=== PATIENT | female | born 1970 ===

== ENCOUNTER 2017-01-20 17:30 | Emergency (ER) | payer MEDICARE ==
[2017-01-20 18:12] VITALS: BP 140/90; PULSE 79; RESP 16; TEMP 99.9; O2SAT 99
[2017-01-20] MEDS ORDERED: Sodium Chloride 0.9% 1,000 ML IV STA (19:25)
--- NOTE | 2017-01-20 19:36 | ED PDOC ---
HPI: General Adult Time Seen by Provider: 01/20/17 17:50 Chief Complaint (Nursing): Flu-like Symptoms Chief Complaint (Provider): Fever History Per: Patient History/Exam Limitations: no limitations Onset/Duration Of Symptoms: Days (x3) Have you had recent travel within the past 21 days to any of the following countries: [place], [place], [place] or [place]?: No Current Symptoms Are (Timing): Still Present Additional Complaint(s): Ria Bauman is a 46 year old female, with a past medical history inclusive of HTN, rheumatoid arthritis and Lupus, who presents to the ED on for the evaluation of a subjective fever x3 days. Associated diffuse myalgias, shortness of breath and some low back pain also reported in addition to a productive cough that she has experienced x1 month. Denies chest pain, vomiting, abdominal pain or urinary complaints. Of note, patient is currently taking a course of PO Cefuroxime that was prescribed to her by her PMD last week, no visible improvement. PMD: Kole Sharp Past Medical History Reviewed: Historical Data, Nursing Documentation, Vital Signs Vital Signs: Last Vital Signs Temp 99.9 F H 01/20/17 18:08 Pulse 79 01/20/17 18:08 Resp 16 01/20/17 18:08 BP 140/90 01/20/17 18:08 Pulse Ox 99 01/21/17 01:04 - Medical History PMH: Arthritis, HTN, Rheumatoid Arthritis Other PMH: Lupus - Surgical History Surgical History: No Surg Hx - Family History Family History: States: Unknown Family Hx - Social History Current smoker - smoking cessation education provided: No Alcohol: None Drugs: Denies - Immunization History Hx Tetanus Toxoid Vaccination: No Hx Influenza Vaccination: No Hx Pneumococcal Vaccination: No - Home Medications Home Medications: Ambulatory Orders Medication Instructions Recorded Dolobid 500 mg PO BID 06/09/14 Methotrexate 10 mg PO DAILY 06/09/14 Phenazopyridine Hydrochlorid2 1 tab PO TID #15 tab 06/09/14 [Pyridium] Plaquenil 200 mg PO BID 06/09/14 Ramipril 5 mg PO DAILY 06/09/14 Sulfamethoxazole/Trimethoprim 1 tab PO BID #14 tab 06/09/14 [Bactrim 400 mg-80 mg] - Allergies Allergies/Adverse Reactions: Allergies Allergy/AdvReac Type Severity Reaction Status Date / Time No Known Allergies Allergy Verified 01/20/17 18:08 Review of Systems ROS Statement: Except As Marked, All Systems Reviewed And Found Negative Constitutional: Positive for: Other (diffuse myalgias) Cardiovascular: Negative for: Chest Pain Respiratory: Positive for: Cough, Shortness of Breath, Sputum Gastrointestinal: Negative for: Vomiting, Abdominal Pain Genitourinary Female: Negative for: Dysuria, Frequency, Hematuria Musculoskeletal: Positive for: Back Pain (low back) Physical Exam - Reviewed Nursing Documentation Reviewed: Yes Vital Signs Reviewed: Yes - Physical Exam Appears: Positive for: Non-toxic, No Acute Distress Head Exam: Positive for: ATRAUMATIC, NORMOCEPHALIC Skin: Positive for: Normal Color, Warm, Dry Eye Exam: Positive for: Normal appearance, PERRL ENT: Positive for: Normal ENT Inspection. Negative for: Pharyngeal Erythema, Tonsillar Exudate, Tonsillar Swelling Cardiovascular/Chest: Positive for: Regular Rate, Rhythm. Negative for: Murmur Respiratory: Positive for: Normal Breath Sounds. Negative for: Rales, Rhonchi, Wheezing, Respiratory Distress Gastrointestinal/Abdominal: Positive for: Normal Exam, Soft. Negative for: Tenderness Back: Positive for: Normal Inspection Extremity: Positive for: Normal ROM Neurologic/Psych: Positive for: Alert, Oriented - Laboratory Results Result Diagrams: 01/20/17 19:30 01/20/17 19:30 - ECG O2 Sat by Pulse Oximetry: 99 (RA) Pulse Ox Interpretation: Normal - Radiology X-Ray: Viewed By Me, Read By Radiologist X-Ray Interpretation: No Acute Disease Medical Decision Making Medical Decision Makin:13 Initial Impression: fever, cough, myalgias; will r/o pneumonia, influenza, pulmonary embolism Initial Plan: * CXR * Labs * D-Dimer * Beta HCG * Influenza A B * Urinalysis * Urine C&S * IV NS 1000ml at 150mls/hr * Toradol 30mg IV * Reevaluation 21:46 CXR report reviewed by Kandace: IMPRESSION: 1. No acute cardiopulmonary disease. 2. Incidental/non-acute findings are described above. 2334: D-dimer elevated. CT angio chest ordered to r/o PE. 0014: CT angio chest impression: 1. No CT evidence of pulmonary embolism. 2. Splenic lesion, indeterminate. Suggest nonemergent ultrasound or MRI. 3. Incidental/non-acute findings are described above. 0029: Patient feels better and is stable for d/c. Advised to return to ED with any worsening or concerning symptoms. Gave patient copy of CT report for f/u w/ PCP. explained need for outpt follow up fro splenic lesion. Scribe Attestation: Documented by Lilli Griggs, acting as a scribe for Breyl Cisse MD. Provider Scribe Attestation: All medical record entries made by the Scribe were at my direction and personally dictated by me. I have reviewed the chart and agree that the record accurately reflects my personal performance of the history, physical exam, medical decision making, and the department course for this patient. I have also personally directed, reviewed, and agree with the discharge instructions and disposition. Disposition - Clinical Impression Clinical Impression: Fever, Viral illness - Patient ED Disposition Is Patient to be Admitted: No Counseled Patient/Family Regarding: Studies Performed, Diagnosis, Need For Followup - Disposition Referrals: [facility] [Outside] [facility] [Outside] Disposition: Routine/Home Disposition Time: 23:29 Condition: GOOD Additional Instructions: follow up with your primary doctor in 1-2 days. return to the ED with any worsening or concerning symptoms or if not better in 3 days. r Instructions: Viral Syndrome (ED)
[2017-01-20 19:53] LABS: BASO # 0.1 K/uL (0.0-0.2); BASO % 0.8 % (0.0-2.0); EOS % 0.5 % (0.0-4.0); HEMATOCRIT 40.8 % (34.0-47.0); LYMPH # 0.6 K/uL (1.0-4.3); LYMPH % 7.2 % (20.0-40.0); MEAN CORPUSCULAR HEMOGLOBIN 31.4 pg (27.0-31.0); MEAN CORPUSCULAR HGB CONC 32.7 g/dL (33.0-37.0); MEAN PLATELET VOLUME 9.3 fl (7.2-11.7); MONO # 0.4 K/uL (0.0-0.8); MONO % 4.7 % (0.0-10.0); NEUT # 7.7 K/uL (1.8-7.0); NEUT % 86.8 % (50.0-75.0); PLATELET COUNT 182 K/uL (130-400); RED CELL DISTRIBUTION WIDTH 16.2 % (11.5-14.5); WHITE BLOOD COUNT 8.8 K/uL (4.8-10.8)
[2017-01-20 20:01] LABS: RBC URINE 2 /hpf (0-3); URINE BILIRUBIN NEGATIVE (NEGATIVE); URINE BLOOD NEGATIVE (NEGATIVE); URINE COLOR YELLOW (YELLOW); URINE GLUCOSE (UA) NEG (Normal); URINE KETONE NEGATIVE (NEGATIVE); URINE LEUKOCYTE ESTERASE NEG Leu/uL (Negative); URINE PROTEIN NEGATIVE (NEGATIVE); URINE UROBILINOGEN 0.2-1.0 mg/dL (0.2-1.0); WBC URINE 1 /hpf (0-5)
[2017-01-20 20:04] LABS: ALKALINE PHOSPHATASE 90 U/L (38-126); ALT/SGPT 30 U/L (9-52); AST/SGOT 25 U/L (14-36); BILIRUBIN,TOTAL 0.7 mg/dl (0.2-1.3); BLOOD UREA NITROGEN 17 mg/dl (7-17); CALCIUM 8.8 mg/dL (8.4-10.2); CARBON DIOXIDE 23 mmol/L (22-30); CHLORIDE 106 mmol/L (98-107); GFR AFRICAN-AMERICAN > 60; GLUCOSE,RANDOM 115 mg/dL (65-105); POTASSIUM 3.8 MMOL/L (3.6-5.0); SODIUM 143 mmol/l (132-148); TOTAL PROTEIN 7.3 G/DL (6.3-8.2)
[2017-01-20 20:20] LABS: NEUTROPHIL 85 % (42-75); TOTAL CELLS COUNTED 100
[2017-01-20 20:22] LABS: METAMYELOCYTE 1 % (0-0)
--- NOTE | 2017-01-20 21:47 | RAD ---
EXAM: XR Chest, 2 Views. CLINICAL HISTORY: 46 years old, female; Signs and symptoms; Cough and shortness of breath and other: Body aches; Symptoms not specified; Additional info: Short of breath, chest pain TECHNIQUE: Frontal and lateral views of the chest. COMPARISON: No relevant prior studies available. FINDINGS: Lungs: No consolidation. Pleural space: No pleural effusion. No pneumothorax. Heart: No cardiomegaly. Mediastinum: Unremarkable. Bones/joints: No acute fracture. IMPRESSION: 1. No acute cardiopulmonary disease. 2. Incidental/non-acute findings are described above.
[2017-01-20] MEDS ORDERED: Iodixanol 320 MG/ML 100 ML BOTTLE IV ONE (23:35)
[2017-01-20] MEDS ORDERED: Sodium Chloride 0.9% 50 ML IV ONE (23:35)
--- NOTE | 2017-01-21 00:14 | CT ---
EXAM: CT Angiography Chest With Intravenous Contrast. CLINICAL HISTORY: 46 years old, female; Signs and symptoms; Other: Elevated d-dimer; Additional info: Rule out pe TECHNIQUE: Axial computed tomographic angiography images of the chest with intravenous contrast using pulmonary embolism protocol. This CT exam was performed using one or more of the following dose reduction techniques: automated exposure control, adjustment of the mA and/or kV according to patient size, and/or use of iterative reconstruction technique. MIP reconstructed images were created and reviewed. Coronal and sagittal reformatted images were created and reviewed. CONTRAST: 90 mL of administered intravenously. COMPARISON: No relevant prior studies available. FINDINGS: Pulmonary arteries: No pulmonary embolism. Aorta: No aneurysm. No dissection. Lungs: No consolidation. Pleural space: No significant effusion. No pneumothorax. Heart: Mild cardiomegaly. No significant pericardial effusion. Bones/joints: No acute fracture. No dislocation. Soft tissues: Unremarkable. Lymph nodes: No pathologically enlarged lymph nodes. Spleen: 1.7 x 1.6 x 1.8 cm hypodense lesion, incompletely characterized. IMPRESSION: 1. No CT evidence of pulmonary embolism. 2. Splenic lesion, indeterminate. Suggest nonemergent ultrasound or MRI. 3. Incidental/non-acute findings are described above.
== END 2017-01-21 01:07 | disposition home or self-care (01) ==
LOC: H.ER 17:30
DX: R50.9 Fever, unspecified (principal); B34.9 Viral infection, unspecified; I10 Essential (primary) hypertension
CPT/HCPCS: 71020; 71275; 80053; 81003; 81025; 84702; 85025; 85378; 87086; 87804; 99283; J1885; J2405; J7040; Q9967

== ENCOUNTER 2018-01-28 11:45 | Inpatient (IN) | payer MEDICARE ==
--- NOTE | 2018-01-28 12:55 | ED PDOC ---
Past Medical History Vital Signs: Last Vital Signs Temp 103.0 F H 01/28/18 11:48 Pulse 143 H 01/28/18 11:48 Resp 16 01/28/18 11:48 BP 106/77 01/28/18 11:48 Pulse Ox 97 01/28/18 12:55 - Medical History PMH: Arthritis, HTN, Rheumatoid Arthritis - Family History Family History: States: Unknown Family Hx - Immunization History Hx Tetanus Toxoid Vaccination: No Hx Influenza Vaccination: No Hx Pneumococcal Vaccination: No - Home Medications Home Medications: Ambulatory Orders Medication Instructions Recorded Dolobid 500 mg PO BID 06/09/14 Methotrexate 10 mg PO DAILY 06/09/14 Phenazopyridine Hydrochlorid2 1 tab PO TID #15 tab 06/09/14 [Pyridium] Plaquenil 200 mg PO BID 06/09/14 Ramipril 5 mg PO DAILY 06/09/14 Sulfamethoxazole/Trimethoprim 1 tab PO BID #14 tab 06/09/14 [Bactrim 400 mg-80 mg] - Allergies Allergies/Adverse Reactions: Allergies Allergy/AdvReac Type Severity Reaction Status Date / Time No Known Allergies Allergy Verified 01/20/17 18:08 - ECG O2 Sat by Pulse Oximetry: 97 Disposition - Disposition Forms: [employer] (Serbian)
[2018-01-28] MEDS ORDERED: Sodium Chloride 0.9% 1,000 ML IV SCH ×2 (13:00→22:30)
[2018-01-28] MEDS ORDERED: Piperacillin/Tazobact 3.375 GM in Sodium Chloride 0.9% 100 ML IVPB STA (13:04)
--- NOTE | 2018-01-28 13:10 | ED PDOC ---
HPI:Nausea, Vomiting, Diarrhea History Per: Patient, Family, Tray Drier (O' Doughty'sSAMANTHA ERAZO [id number]) Additional Complaint(s): 47 y/o female, hx of RA/SLE/HTN presented with at bedside for evaluation of fever/nausea/vomiting/diarrhea and altered mental status. at bedside reports symptom onset was approx Thursday during the day. Vomiting has been frequent, but no quantifed amount. Emesis has been NBNB. Pt has not been tolerating PO intake at all as per . There have also been multiple episodes of diarrhea that has been NB. Pt was on course of Cefuroxmine at the end of the December. reports pt also started acting differently yesterday, reports she normally converses and responds but has been having blank stares and has been very "figgity". Fever was not recorded but as per she has been feeling very hot. When questioning pt, she reports she also has discomfort with urination, which she says is burining in nature. Also reports back pain but chronicity is unknown. No cough, SOB, difficulty breathing. PMD: Fogari (rheum) <Bolivar Mahoney - Last Filed: 01/28/18 14:51> <Joanne Vega - Last Filed: 01/29/18 23:07> Time Seen by Provider: 01/28/18 12:13 Chief Complaint (Nursing): Fever Supervising Attending Note - Supervising Attending Note The Documented history was done by the: Physician Wood Fence Erector, Attending Physician The documented physical exam was done by the: Physician Wood Fence Erector, Attending Physician The documented procedures were done by the: Physician Wood Fence Erector, Attending Physician EM CAVEAT: Acuity of Condition - Attestation: I have personally seen and examined this patient.: Yes I have fully participated in the care of the patient.: Yes I have reviewed all pertinent clinical information, including history, physical exam and plan: Yes <Joanne Vega - Last Filed: 01/29/18 23:07> Past Medical History Reviewed: Historical Data, Nursing Documentation, Vital Signs Vital Signs: Last Vital Signs Temp 103.0 F H 01/28/18 11:48 Pulse 143 H 01/28/18 11:48 Resp 16 01/28/18 11:48 BP 106/77 01/28/18 11:48 Pulse Ox 97 01/28/18 13:09 - Medical History PMH: Arthritis, HTN, Rheumatoid Arthritis - Family History Family History: States: Unknown Family Hx - Immunization History Hx Tetanus Toxoid Vaccination: No Hx Influenza Vaccination: No Hx Pneumococcal Vaccination: No <Bolivar Mahoney - Last Filed: 01/28/18 14:51> Reviewed: Historical Data Vital Signs: Last Vital Signs Temp 103.3 F H 01/28/18 13:40 Pulse 128 H 01/28/18 13:40 Resp 18 01/28/18 13:40 BP 106/77 01/28/18 11:48 Pulse Ox 98 01/28/18 13:40 - Surgical History Surgical History: No Surg Hx <Joanne Vega - Last Filed: 01/29/18 23:07> - Home Medications Home Medications: Ambulatory Orders Medication Instructions Recorded Baclofen [Lioresal] 10 mg PO Q12 PRN 01/28/18 Cholecalciferol (Vitamin D3) 5,000 unit PO DAILY 01/28/18 [Vitamin D3] Diflunisal 500 mg PO Q12 01/28/18 Enalapril Maleate [Vasotec] 10 mg PO DAILY 01/28/18 Folic Acid [Folic Acid] 1 mg PO DAILY 01/28/18 Hydroxychloroquine Sulfate 200 mg PO Q12 01/28/18 [Plaquenil] Methotrexate 12.5 mg PO QWK 01/28/18 predniSONE [predniSONE Tab] 5 mg PO DAILY 01/28/18 - Allergies Allergies/Adverse Reactions: Allergies Allergy/AdvReac Type Severity Reaction Status Date / Time No Known Allergies Allergy Verified 01/20/17 18:08 Review of Systems Constitutional: Positive for: Fever, Chills, Weakness. Negative for: Sweats Eyes: Negative for: Vision Change ENT: Negative for: Nose Discharge, Nose Congestion, Throat Pain, Throat Swelling Cardiovascular: Negative for: Chest Pain, Palpitations, Orthopnea, Light Headedness Respiratory: Negative for: Cough, Shortness of Breath, Hemoptysis, SOB with Exertion, Pleuritic Pain, Sputum, Wheezing Gastrointestinal: Positive for: Nausea, Vomiting, Abdominal Pain, Diarrhea. Negative for: Constipation, Melena, Hematochezia, Hematemesis Genitourinary Female: Positive for: Dysuria, Frequency. Negative for: Incontinence, Hematuria, Vaginal Discharge, Vaginal Bleeding, Pelvic Pain, Rash Skin: Negative for: Rash, Jaundice, Bruising Neurological: Positive for: Altered Mental Status. Negative for: Weakness, Numbness, Incoordination, Change in Speech, Confusion, Seizures, Headache, Dizziness <Bolivar Mahoney - Last Filed: 01/28/18 14:51> ROS Statement: Except As Marked, All Systems Reviewed And Found Negative <Joanne Vega - Last Filed: 01/29/18 23:07> Physical Exam - Reviewed Nursing Documentation Reviewed: Yes Vital Signs Reviewed: Yes - Physical Exam Appears: Positive for: Non-toxic, No Acute Distress, Uncomfortable Head Exam: Positive for: ATRAUMATIC, NORMAL INSPECTION, NORMOCEPHALIC Skin: Positive for: Warm, Dry, Pallor. Negative for: Rash, Mottled, Cyanosis Eye Exam: Positive for: EOMI, PERRL, Conjunctival injection ENT: Positive for: Normal ENT Inspection Neck: Positive for: Painless ROM, Supple. Negative for: Decreased ROM Cardiovascular/Chest: Positive for: Regular Rate, Rhythm, Tachycardia. Negative for: JVD, Murmur, Friction Rub, Irregularly Irregular Respiratory: Positive for: Normal Breath Sounds. Negative for: Decreased Breath Sounds, Accessory Muscle Use, Crackles, Rales, Rhonchi, Wheezing, Respiratory Distress Pulses-Radial (L): 2+ Pulses-Radial (R): 2+ Gastrointestinal/Abdominal: Positive for: Bowel Sounds (normal), Soft, Tenderness (discomfort upon palpation ). Negative for: Organomegaly, Mass, Distended, Guarding, Rebound Back: Positive for: L CVA Tenderness, R CVA Tenderness. Negative for: Decreased ROM, Muscle Spasm Extremity: Positive for: Normal ROM, Capillary Refill (<2s). Negative for: Tenderness, Pedal Edema DTR - Knee (R): 2+ DTR - Knee (L): 2+ Lymphatic: Negative for: Adenopathy Neurologic/Psych: Positive for: procurement intern II-XII, Oriented (to name only ), Gait ( unsteady), Other (does not know place/date/event). Negative for: Alert, Motor/ Sensory Deficits, Aphasia <Bolivar Mahoney - Last Filed: 01/28/18 14:51> - Reviewed Nursing Documentation Reviewed: Yes <Joanne Vega - Last Filed: 01/29/18 23:07> - Laboratory Results Result Diagrams: 01/28/18 13:05 01/28/18 13:05 - ECG O2 Sat by Pulse Oximetry: 97 - Progress ED Course And Treament: UTI/Sepsis/gastroenteritis/influenza sepsis work up flu a/b c diff (recent abx usage) IV fluids CXR EKG Udip/culture IV Zosyn (large LE/nitrates on dip) re-evaluate <Bolivar Mahoney - Last Filed: 01/28/18 14:51> - Laboratory Results Result Diagrams: 01/29/18 09:30 01/29/18 09:30 <Joanne Vega - Last Filed: 01/29/18 23:07> Disposition - Patient ED Disposition Is Patient to be Admitted: Yes - Disposition Disposition Time: 14:51 - Pt Status Changed To: Hospital Disposition Of: Inpatient - Admit Certification Admit to Inpatient:: After my assessment, the patient will require hospitalization for at least two midnights. This is because of the severity of symptoms shown, intensity of services needed, and/or the medical risk in this patient being treated as an outpatient. <Bolivar Mahoney - Last Filed: 01/28/18 14:51> Discussed With : Elia Calivn Doctor Will See Patient In The: Hospital Counseled Patient/Family Regarding: Studies Performed, Diagnosis - POA Present On Arrival: None <Joanne Vega - Last Filed: 01/29/18 23:07> - Clinical Impression Clinical Impression: UTI (lower urinary tract infection), Sepsis, Gastroenteritis - Disposition Condition: FAIR
[2018-01-28] MEDS ORDERED: Piperacillin/Tazobact 3.375 gm Inj IVPB ONE (13:31)
[2018-01-28 13:34] LABS: VENOUS BLOOD GAS BASE EXCESS -0.4 mmol/L (0.0-2.0); VENOUS BLOOD GAS PCO2 33 mmHg (40-60); VENOUS BLOOD GAS PO2 26 mm/Hg (30-55); VENOUS BLOOD PH 7.45 (7.32-7.43)
[2018-01-28 13:36] LABS: BASO # 0.1 K/uL (0.0-0.2); BASO % 0.7 % (0.0-2.0); HEMOGLOBIN 14.5 g/dL (12.0-16.0); LYMPH # 2.2 K/uL (1.0-4.3); LYMPH % 17.6 % (20.0-40.0); MEAN CELL VOLUME 90.7 fl (81.0-99.0); MEAN CORPUSCULAR HEMOGLOBIN 30.5 pg (27.0-31.0); MEAN CORPUSCULAR HGB CONC 33.7 g/dL (33.0-37.0); MEAN PLATELET VOLUME 8.8 fl (7.2-11.7); MONO # 0.9 K/uL (0.0-0.8); MONO % 7.1 % (0.0-10.0); NEUT # 9.4 K/uL (1.8-7.0); NEUT % 74.6 % (50.0-75.0); RBC 4.74 Mil/uL (3.80-5.20); RED CELL DISTRIBUTION WIDTH 14.9 % (11.5-14.5); WHITE BLOOD COUNT 12.6 K/uL (4.8-10.8)
[2018-01-28 13:48] LABS: ALB/GLOB RATIO 0.9 (1.0-2.1); ALBUMIN 4.1 g/dL (3.5-5.0); CALCIUM 9.4 mg/dL (8.4-10.2)
[2018-01-28 13:52] LABS: INR 1.3 (0.9-1.2); PARTIAL THROMBOPLASTIN TIME 38.1 Seconds (25.6-37.1); PROTHROMBIN TIME 13.9 Seconds (9.8-13.1)
[2018-01-28 14:00] LABS: TROPONIN I 0.022 ng/mL (0.00-0.120)
[2018-01-28] MEDS ORDERED: Magnesium Sulfate 1 GM in Dextrose 5% In Water 100 ML IVPB ONE (14:16)
[2018-01-28] MEDS ORDERED: Potassium Chloride 20 mEq 100 ML IVPB ONE (14:17)
--- NOTE | 2018-01-28 14:31 | RAD ---
HISTORY: Fever. COMPARISON: Comparison chest dated 01/20/2018. TECHNIQUE: Chest PA and lateral FINDINGS: LUNGS: Mild bibasilar atelectasis. PLEURA: No significant pleural effusion identified. No pneumothorax apparent. CARDIOVASCULAR: Heart size is upper limits of normal/ borderline enlarged. OSSEOUS STRUCTURES: No significant abnormalities. VISUALIZED UPPER ABDOMEN: Normal. OTHER FINDINGS: None. IMPRESSION: Mild bibasilar atelectasis.
--- NOTE | 2018-01-28 15:39 | CT ---
PROCEDURE: CT HEAD WITHOUT CONTRAST. HISTORY: AMS COMPARISON: 12/13/2011. TECHNIQUE: Axial computed tomography images were obtained through the head/brain without intravenous contrast. Coronal and sagittal reconstructed images. Radiation dose: Total exam DLP = 767.44 mGy-cm. This CT exam was performed using one or more of the following dose reduction techniques: Automated exposure control, adjustment of the mA and/or kV according to patient size, and/or use of iterative reconstruction technique. FINDINGS: HEMORRHAGE: No intracranial hemorrhage. BRAIN: No mass effect or edema. No atrophy or chronic microvascular ischemic changes. VENTRICLES: Unremarkable. No hydrocephalus. CALVARIUM: Unremarkable. PARANASAL SINUSES: Unremarkable as visualized. No significant inflammatory changes. MASTOID AIR CELLS: Unremarkable as visualized. No inflammatory changes. OTHER FINDINGS: None. IMPRESSION: No acute intracranial abnormalities. No significant findings to account for the clinical presentation. No significant interval change compared to the prior examination(s).
[2018-01-28] MEDS ORDERED: Magnesium Sulfate 2 gm/50 ml 0 GM/0 ML BAG ONE (15:57)
[2018-01-28] MEDS ORDERED: Potassium Chloride 20 mEq ER Tab PO ONE ×2 (16:00→16:03)
[2018-01-28 17:36] LABS: VENOUS BLOOD GAS BASE EXCESS -6.3 mmol/L (0.0-2.0); VENOUS BLOOD GAS PCO2 32 mmHg (40-60); VENOUS BLOOD GAS PO2 41 mm/Hg (30-55); VENOUS BLOOD PH 7.36 (7.32-7.43)
[2018-01-28] MEDS ORDERED: Sodium Chloride 0.45% 1,000 ML IV SCH (20:00)
[2018-01-28] MEDS: DIFLUNISAL 500 MG PO SCH (22:40)
[2018-01-28] MEDS: Dextrose 5%/0.9% NS 1,000 ML IV SCH (23:45)
[2018-01-29] MEDS: Piperacillin/Tazobact 3.375 GM in Sodium Chloride 0.9% 100 ML IVPB SCH ×3 (00:02→20:19)
[2018-01-29] MEDS ORDERED: Trimethobenzamide 200 mg/2 mL Inj IM ONE (06:29)
[2018-01-29] MEDS: metroNIDAZOLE 500mg/100ml NS 100 ML IVPB SCH ×2 (09:42→20:19)
[2018-01-29] MEDS: Enoxaparin 40 mg Syringe SC SCH (09:46)
[2018-01-29] MEDS: DIFLUNISAL 500 MG PO SCH ×2 (10:06→22:00)
[2018-01-29] MEDS: Cholecalciferol 1,000 INTLU TAB PO SCH (10:08)
[2018-01-29] MEDS: Dextrose 5%/0.9% NS 1,000 ML IV SCH ×2 (10:09→22:03)
[2018-01-29 10:11] LABS: BASO % 0.1 % (0.0-2.0); HEMOGLOBIN 12.1 g/dL (12.0-16.0); LYMPH # 0.6 K/uL (1.0-4.3); LYMPH % 4.6 % (20.0-40.0); MEAN CELL VOLUME 90.8 fl (81.0-99.0); MEAN CORPUSCULAR HEMOGLOBIN 30.5 pg (27.0-31.0); MEAN CORPUSCULAR HGB CONC 33.6 g/dL (33.0-37.0); MEAN PLATELET VOLUME 9.1 fl (7.2-11.7); MONO # 0.5 K/uL (0.0-0.8); MONO % 3.9 % (0.0-10.0); NEUT # 12.8 K/uL (1.8-7.0); NEUT % 91.4 % (50.0-75.0); PLATELET COUNT 144 K/uL (130-400); RBC 3.95 Mil/uL (3.80-5.20); RED CELL DISTRIBUTION WIDTH 15.5 % (11.5-14.5)
[2018-01-29 10:25] LABS: ALB/GLOB RATIO 0.8 (1.0-2.1); ALBUMIN 3.1 g/dL (3.5-5.0); ALT/SGPT 30 U/L (9-52); AST/SGOT 25 U/L (14-36); BLOOD UREA NITROGEN 14 mg/dl (7-17); CALCIUM 8.2 mg/dL (8.4-10.2); GFR AFRICAN-AMERICAN > 60; GFR NON-AFRICAN AMERICAN 60
[2018-01-29] MEDS ORDERED: Iohexol 240 (50 ml) PO ONE (10:50)
[2018-01-29 11:20] LABS: ANISOCYTOSIS SLIGHT; LYMPHOCYTE 7 % (20-50); MONOCYTE 8 % (0-10); NEUTROPHIL 85 % (42-75); OVALOCYTES SLIGHT; PLATELET ESTIMATE SLIGHTLY DECREASED (NORMAL); TEARDROP CELLS SLIGHT; TOTAL CELLS COUNTED 100
[2018-01-29 11:21] LABS: LARGE PLATELETS PRESENT
[2018-01-29] MEDS: Potassium Chloride 20 mEq 100 ML IVPB SCH ×2 (12:28→15:13)
[2018-01-29] MEDS ORDERED: Iohexol 300 100 ML IJ ONE (13:46)
--- NOTE | 2018-01-29 14:49 | CT ---
PROCEDURE: CT Abdomen and Pelvis with contrast HISTORY: Nausea, abdominal pain, vomiting and diarrhea COMPARISON: None. TECHNIQUE: CT scan of the abdomen and pelvis was performed after administration of intravenous contrast. Oral contrast was not administered. Coronal and sagittal reformatted images were obtained. Contrast dose: 95 mL Omnipaque 300 Radiation dose: Total exam DLP = 466.46 mGy-cm. This CT exam was performed using one or more of the following dose reduction techniques: Automated exposure control, adjustment of the mA and/or kV according to patient size, and/or use of iterative reconstruction technique. FINDINGS: LOWER THORAX: The lung bases are clear. There is linear atelectasis/scarring in the lingula P LIVER: There is mild hepatomegaly and diffuse fatty infiltration in the liver. No gross lesion or ductal dilatation. GALLBLADDER AND BILE DUCTS: There are no calcified gallstones. PANCREAS: Normal in size with homogeneous enhancement. No gross lesion or ductal dilatation. SPLEEN: The spleen is normal in size. There is a 2.0 cm lobular fluid density lesion in the lower pole of the spleen. ADRENALS: Normal in size without discrete nodule. KIDNEYS AND URETERS: Normal in size with homogeneous enhancement. No hydronephrosis. No solid mass. VASCULATURE: No aortic aneurysm. BOWEL: There are fluid filled normal caliber small bowel loops. There is also fluid in normal caliber colon. No bowel dilatation or obstruction. APPENDIX: Normal appendix. PERITONEUM: No free fluid. No free air. LYMPH NODES: No enlarged lymph nodes. BLADDER: The urinary bladder is partially decompressed and there is apparent moderate mural thickening of the bladder wall with minimal perivesical fat stranding. REPRODUCTIVE: The uterus is normal in size. BONES: No acute fracture. Diffuse bone demineralization. OTHER FINDINGS: None. IMPRESSION: 1. Fluid-filled normal caliber small bowel loops and colon without evidence for bowel dilatation or obstruction. Findings are most compatible with nonspecific infectious/inflammatory enteritis and colitis. 2. 2.0 cm simple cyst in the lower pole of the spleen.
--- NOTE | 2018-01-29 16:08 | CP.PCM.CON ---
History of Present Illness - History of Present Illness History of Present Illness: Consult requested by Dr Calvin- This is a 47 year old female, with history of of RA/SLE/HTN presented with at bedside for evaluation of fever asscoiated with nausea and vomiting/diarrhea. As per patient no sick contacts and no travel history. Vomiting was non bloody. Pt has not been tolerating PO intake at all as per . There have also been multiple episodes of non bloody diarrhea several times per day. Patient was on course of Cefuroxmine at the end of the December. Fever was not recorded but as per she has been feeling very hot. When questioning pt, she reports she also has discomfort with urination, which she says is burning in nature. Also reports back pain but chronicity is unknown. No cough, SOB, difficulty breathing. Denies any GI pathology in the past Review of Systems - Review of Systems Review of Systems: 12 point ROS unremarkable except that documented in HPI Past Patient History - Infectious Disease Hx of Infectious Diseases: None - Past Medical History & Family History Past Medical History?: Yes - Past Social History Smoking Status: Never Smoked - CARDIAC Hx Cardiac Disorders: No Hx Angina: No Hx Atrial Fibrillation: No Hx Cardia Arrhythmia: No Hx Circulatory Problems: No Hx Congestive Heart Failure: No Hx Heart Attack: No Hx Heart Murmur: No Hx Heart Transplant: No Hx Hypercholesterolemia: No Hx Hypertension: Yes Hx Hypotension: No Hx Internal Defibrillator: No Hx Mitral Valve Prolapse: No Hx Pacemaker: No Hx Peripheral Edema: No Hx Peripheral Vascular Disease: No - PULMONARY Hx Respiratory Disorders: No Hx Asthma: No Hx Bronchitis: No Hx Chronic Obstructive Pulmonary Disease (COPD): No Hx Emphysema: No Hx Lung Cancer: No Hx Pneumonia: No Hx Pulmonary Edema: No Hx Pulmonary Embolism: No Hx Respiratory Aspiration: No Hx Respiratory Tract Infection: No Hx Sleep Apnea: No Hx Tuberculosis: No - NEUROLOGICAL Hx Neurological Disorder: No Hx Alzheimer's Disease: No HX Cerebrovascular Accident: No Hx Dementia: No Hx Dizziness: No Hx Meningitis: No Hx Migraine: No Hx Multiple Sclerosis: No Hx Paralysis: No Hx Parkinson's Disease: No Hx Seizures: No Hx Syncope: No Hx Transient Ischemic Attacks (TIA): No Hx Vertigo: No Other/Comment: occasional headache - HEENT Hx HEENT Problems: No Hx Blind: No Hx Cataracts: No Hx Deafness: No Hx Difficulty Chewing: No Hx Epistaxis: No Hx Glaucoma: No Hx Macular Degeneration: No Hx Sinusitis: No - RENAL Hx Chronic Kidney Disease: No Hx Dialysis: No Hx Kidney Stones: No Hx Neurogenic Bladder: No Hx Pyelonephritis: No Hx Renal (Kidney) Cancer: No Hx Renal Failure: No - ENDOCRINE/METABOLIC Hx Endocrine Disorders: Yes Hx Adrenal Cancer: No Hx Diabetes Insipidus: No Hx Diabetes Mellitus Type 1: No Hx Diabetes Mellitus Type 2: No Hx Hyperthyroidism: No Hx Hypothyroidism: No Hx Systemic Lupus Erythematosus: Yes - HEMATOLOGICAL/ONCOLOGICAL Hx Blood Disorders: No Hx AIDS: No Hx Anemia: No Hx Blood Transfusions: No Hx Blood Transfusion Reaction: No Hx Bruising: No Hx Cancer: No Hx Chemotherapy: No Hx Cirrhosis: No Hx Gum Bleeding: No Hx Hemophilia: No Hx Hepatitis A: No Hx Hepatitis B: No Hx Hepatitis C: No Hx Human Immunodeficiency Virus (HIV): No Hx Leukemia: No Hx Metastesis: No Hx Shingles: No Hx Sickle Cell Disease: No Hx Unexplained Bleeding: No Hx von Willebrand's Disease: No - INTEGUMENTARY Hx Dermatological Problems: No Hx Basil Cell: No Hx Rodriguez: No Hx Cellulitis: No Hx Eczema: No Hx Melanoma: No Hx Psoriasis: No Hx Squamous Cell: No - MUSCULOSKELETAL/RHEUMATOLOGICAL Hx Musculoskeletal Disorders: No Hx Arthritis: Yes Hx Back Pain: Yes Hx Degenerative Joint Disease: No Hx Falls: No Hx Fractures: No Hx Gout: No Hx Herniated Disk: No Hx Myasthenia Gravis: No Hx Osteoarthritis: No Hx Osteomyelitis: No Hx Osteoporosis: No Hx Rhabdomyolysis: No Hx Rheumatoid Arthritis: Yes Hx Spinal Stenosis: No Hx Unsteady Gait: No - GASTROINTESTINAL Hx Gastrointestinal Disorders: No Hx Bowel Surgery: No Hx Clostridium Difficile: No Hx Colitis: No Hx Colostomy: No Hx Constipation: No Hx Crohn's Disease: No Hx Diarrhea: No Hx Diverticulitis: No Hx Esophageal Varices: No Hx Fatty Liver Disease: No Hx Gall Bladder Disease: No Hx Gastritis: No Hx Gastroesophageal Reflux: No Hx Hemorrhoids: No Hx Ileostomy: No Hx Irritable Bowel: No Hx Liver Failure: No Hx Nausea: Yes Hx Pancreatitis: No HX Swallowing Problems: No Hx Ulcer: No Hx Vomiting: Yes - GENITOURINARY/GYNECOLOGICAL Hx Genitourinary Disorders: No Hx Bladder Cancer: No Hx Bladder Stone: No Hx Cervical Cancer: No Hx Hematuria: No Hx Incontinence: No Hx Ovarian Cancer: No Hx Postmenopausal Bleeding: No Hx Reproductive Disorders: No Hx Sexually Transmitted Disorders: No Hx Uterine Cancer: No Hx Urinary Tract Infection: No - PSYCHIATRIC Hx Psychophysiologic Disorder: No Hx Anxiety: No Hx Bipolar Disorder: No Hx Depression: No Hx Emotional Abuse: No Hx Hallucinations: No Hx Panic Symptoms: No Hx Paranoia: No Hx Post Traumatic Stress Disorder: No Hx Psychosis: No Hx Physical Abuse: No Hx Schizophrenia: No Hx Sexual Abuse: No Hx Substance Use: No - SURGICAL HISTORY Hx Surgeries: No Hx Abdominal Aortic Aneurysm Repair: No Hx Amputation: No Hx Angiogram: No Hx Angioplasty: No Hx Appendectomy: No Hx Arteriovenous Shunt: No Hx Arthroscopy: No Hx Bile Duct Stent: No Hx Breast Biopsy: No Hx Cataract Extraction: No Hx Cardiac Catheterization: No Hx Carotid Endarterectomy: No Hx Section: No (unknown by , only with her 4 years) Hx Cholecystectomy: No Hx Coronary Artery Bypass Graft: No Hx Coronary Stent: No Hx Dilation and Curettage: No Hx Eye Surgery: No Hx Femoral-Popliteal Bypass Graft: No Hx Gastric Bypass Surgery: No Hx Herniorrhaphy: No Hx Hysterectomy: No Hx Joint Replacement: No Hx Kidney Transplant: No Hx Liver Transplant: No Hx Mastectomy: No Hx Musculoskeletal Surgery: No Hx Open Heart Surgery: No Hx Open Reduction Internal Fixation: No Hx Orthopedic Surgery: No Hx Parathyroidectomy: No Hx Penile Implant: No Hx Pulmonary Surgery: No Hx Splenectomy: No Hx Thyroidectomy: No Hx Tonsillectomy: No Hx Tubal Ligation: No Hx Valve Replacement: No Hx Vascular Surgery: No Hx Vascular Access Device: No - ANESTHESIA Hx Anesthesia: No Hx Anesthesia Reactions: No Hx Malignant Hyperthermia: No Has any member of the family had a problem w/ anesthesia?: No Meds Allergies/Adverse Reactions: Allergies Allergy/AdvReac Type Severity Reaction Status Date / Time No Known Allergies Allergy Verified 01/20/17 18:08 - Medications Medications: Current Medications Acetaminophen (Tylenol 325mg Tab) 650 mg PO Q4 PRN PRN Reason: feve 101 and above Baclofen (Lioresal) 10 mg PO Q12 PRN PRN Reason: Muscle spasm Cholecalciferol (Vitamin D) 5,000 intlu PO DAILY [facility] Last Admin: 01/29/18 10:08 Dose: 5,000 intlu Enalapril Maleate (Vasotec) 10 mg PO DAILY [facility] Last Admin: 01/29/18 10:08 Dose: Not Given Enoxaparin Sodium (Lovenox) 40 mg SC DAILY [facility] PRN Reason: Protocol Last Admin: 01/29/18 09:46 Dose: 40 mg Folic Acid (Folic Acid) 1 mg PO DAILY [facility] Last Admin: 01/29/18 10:06 Dose: 1 mg Home Med (Diflunisal) 500 mg PO Q12 [facility] Last Admin: 01/29/18 10:06 Dose: 500 mg Hydroxychloroquine Sulfate (Plaquenil) 200 mg PO Q12 [facility] PRN Reason: Protocol Last Admin: 01/29/18 10:07 Dose: 200 mg Piperacillin Sod/Tazobactam (Sod 3.375 gm/ Sodium Chloride) 100 mls @ 100 mls/ hr IVPB Q8 [facility] PRN Reason: Protocol Last Admin: 01/29/18 09:43 Dose: 100 mls/hr Dextrose/Sodium Chloride (Dextrose 5%/0.9% Ns 1000 Ml) 1,000 mls @ 100 mls/hr IV .Q10H [facility] Stop: 01/29/18 23:22 Last Admin: 01/29/18 10:09 Dose: 100 mls/hr Metronidazole (Flagyl 500mg/100ml Ns) 100 mls @ 100 mls/hr IVPB Q8 [facility] PRN Reason: Protocol Last Admin: 01/29/18 09:42 Dose: 100 mls/hr Methotrexate (Methotrexate) 12.5 mg PO QWK [facility] PRN Reason: Protocol Ondansetron HCl (Zofran Odt) 4 mg PO Q6 PRN PRN Reason: Nausea/Vomiting Last Admin: 01/29/18 04:04 Dose: 4 mg Prednisone (Prednisone Tab) 5 mg PO DAILY [facility] Last Admin: 01/29/18 10:07 Dose: 5 mg Physical Exam - Constitutional Appears: Well, Non-toxic, No Acute Distress - Head Exam Head Exam: ATRAUMATIC, NORMAL INSPECTION, NORMOCEPHALIC - Eye Exam Eye Exam: EOMI, Normal appearance, PERRL - ENT Exam ENT Exam: Mucous Membranes Moist, Normal Exam - Respiratory Exam Respiratory Exam: Clear to Auscultation Bilateral, NORMAL BREATHING PATTERN - Cardiovascular Exam Cardiovascular Exam: REGULAR RHYTHM, RRR, +S1, +S2 - GI/Abdominal Exam GI & Abdominal Exam: Normal Bowel Sounds, Soft Additional comments: NOn tender. Hyperactive bowel sounds. No guarding - Extremities Exam Extremities exam: Positive for: full ROM - Neurological Exam Neurological exam: Alert, Oriented x3 - Psychiatric Exam Psychiatric exam: Normal Affect, Normal Mood - Skin Skin Exam: Dry, Intact, Normal Color Results - Vital Signs Recent Vital Signs: Last Vital Signs Temp 98.5 F 01/29/18 15:41 Pulse 83 01/29/18 15:41 Resp 20 01/29/18 15:41 BP 104/73 01/29/18 15:41 Pulse Ox 98 01/29/18 15:41 - Labs Result Diagrams: 01/29/18 09:30 01/29/18 09:30 Labs: Laboratory Results - last 24 hr 01/28/18 01/28/18 01/29/18 07:39 17:25 09:30 WBC 14.0 H RBC 3.95 Hgb 12.1 D Hct 35.9 MCV 90.8 MCH 30.5 MCHC 33.6 RDW 15.5 H Plt Count 144 MPV 9.1 Neut % (Auto) 91.4 H Lymph % (Auto) 4.6 L Smyth % (Auto) 3.9 Eos % (Auto) 0.0 Baso % (Auto) 0.1 Neut # (Auto) 12.8 H Lymph # (Auto) 0.6 L Smyth # (Auto) 0.5 Eos # (Auto) 0.0 Baso # (Auto) 0.0 Neutrophils % (Manual) 85 H Lymphocytes % (Manual) 7 L Monocytes % (Manual) 8 Platelet Estimate Slightly decreased L Large Platelets Present Anisocytosis (manual) Slight Macrocytosis (manual) Slight Tear Drop Cells Slight Ovalocytes Slight pO2 41 VBG pH 7.36 VBG pCO2 32 L VBG HCO3 19.4 VBG Total CO2 19.1 L VBG O2 Sat (Calc) 78.1 H VBG Base Excess -6.3 L VBG Potassium 2.4 L* Sodium 138.0 Chloride 108.0 H Glucose 105 Lactate 1.7 FiO2 21.0 Crit Value Called To kiel Mahoney md Crit Value Called By Dandre trinh Crit Value Read Back Y Blood Gas Notified Time 1735 Potassium Carbon Dioxide Anion Gap BUN Creatinine Est GFR ( Amer) Est GFR (Non-Af Amer) Random Glucose Calcium Total Bilirubin AST ALT Alkaline Phosphatase Total Protein Albumin Globulin Albumin/Globulin Ratio TSH 3rd Generation Venous Blood Potassium 2.4 L* C. difficile Ag & Toxin Negative 01/29/18 09:30 WBC RBC Hgb Hct MCV MCH MCHC RDW Plt Count MPV Neut % (Auto) Lymph % (Auto) Smyth % (Auto) Eos % (Auto) Baso % (Auto) Neut # (Auto) Lymph # (Auto) Smyth # (Auto) Eos # (Auto) Baso # (Auto) Neutrophils % (Manual) Lymphocytes % (Manual) Monocytes % (Manual) Platelet Estimate Large Platelets Anisocytosis (manual) Macrocytosis (manual) Tear Drop Cells Ovalocytes pO2 VBG pH VBG pCO2 VBG HCO3 VBG Total CO2 VBG O2 Sat (Calc) VBG Base Excess VBG Potassium Sodium 147 Chloride 112 H Glucose Lactate FiO2 Crit Value Called To Crit Value Called By Crit Value Read Back Blood Gas Notified Time Potassium 3.0 L Carbon Dioxide 20 L Anion Gap 18 BUN 14 Creatinine 1.0 Est GFR ( Amer) > 60 Est GFR (Non-Af Amer) 60 Random Glucose 121 H Calcium 8.2 L Total Bilirubin 0.8 AST 25 ALT 30 Alkaline Phosphatase 56 Total Protein 6.8 Albumin 3.1 L D Globulin 3.7 Albumin/Globulin Ratio 0.8 L TSH 3rd Generation 1.29 Venous Blood Potassium C. difficile Ag & Toxin - Imaging and Cardiology CT scan - abdomen Status: Image reviewed by me, Report reviewed by me Assessment & Plan - Assessment and Plan (Free Text) Assessment: 47 yr old F admitted with UTI and sepsis with CTAP non specific enteritis with recent antibiotic use Plan: - Trend fever and wbc curve - Treat UTI as indicated - Send stool infectious work up- C diff, O and P, CMV, HSV, leukocytes - Consider rheumatology consult for lupus flare - No urgent GI intervention indicated - PPI po daily
--- NOTE | 2018-01-29 18:14 | CARD ---
APPROVED REPORT EKG Measurement Heart [id number] [place] 96P [id number] <Conclusion> Sinus tachycardia with short [place] ST & T wave abnormality, consider lateral ischemia Abnormal ECG
--- NOTE | 2018-01-29 21:42 | CP.PCM.HP ---
History of Present Illness - History of Present Illness History of Present Illness: Cc: Fever, GI symptoms, AMS A 47 year old female with a pmhx hx Rheumatoid Arthritis, Systemic Lupus Erythematosus and Hypertension who presented to the ED with at bedside for evaluation of fever/nausea/vomiting/diarrhea and altered mental status. Patient's at bedside reports symptoms started approximately on Thursday during the day. States vomiting has been frequent, but unable to quantify amount. Emesis has been non bloody and non bilious. states patient has not been tolerating oral intake at all and that patient has had multiple episodes of diarrhea that have been non bloody. Also reports patient was on course of Cefuroxmine at the end of the December. Patient's states that patient started acting differently yesterday, reports she is normally conversant and responds but has been having blank stares and has been very "fidgety". Fever was not recorded at home but as per she has been "feeling very hot". Patient also reports she has discomfort with urination, which she says is burning in nature. Also reports back pain but chronicity is unknown. Denies cough, SOB, chest pain, headache or dizziness. Patient was noted to be febrile, tachycardic, hypokalemic with uti in the ED. The patient was admitted to telemetry for further work up. Present on Admission - Present on Admission Any Indicators Present on Admission: No Review of Systems - Review of Systems All systems: reviewed and no additional remarkable complaints except (as stated) - Constitutional Constitutional: As Per HPI, Fever. absent: Headache, Night Sweats - Cardiovascular Cardiovascular: As Per HPI, Chest Pain. absent: Dyspnea - Respiratory Respiratory: As Per HPI. absent: Cough, Dyspnea - Gastrointestinal Gastrointestinal: As Per HPI, Diarrhea, Nausea, Vomiting. absent: Coffee Ground Emesis, Melena - Neurological Neurological: As Per HPI, Confusion, Weakness. absent: Dizziness, Headaches Past Patient History - Infectious Disease Hx of Infectious Diseases: None - Past Medical History & Family History Past Medical History?: Yes Pertinent Family History: States: Unknown - Past Social History Smoking Status: Never Smoked - CARDIAC Hx Cardiac Disorders: No Hx Angina: No Hx Atrial Fibrillation: No Hx Cardia Arrhythmia: No Hx Circulatory Problems: No Hx Congestive Heart Failure: No Hx Heart Attack: No Hx Heart Murmur: No Hx Heart Transplant: No Hx Hypercholesterolemia: No Hx Hypertension: Yes Hx Hypotension: No Hx Internal Defibrillator: No Hx Mitral Valve Prolapse: No Hx Pacemaker: No Hx Peripheral Edema: No Hx Peripheral Vascular Disease: No - PULMONARY Hx Respiratory Disorders: No Hx Asthma: No Hx Bronchitis: No Hx Chronic Obstructive Pulmonary Disease (COPD): No Hx Emphysema: No Hx Lung Cancer: No Hx Pneumonia: No Hx Pulmonary Edema: No Hx Pulmonary Embolism: No Hx Respiratory Aspiration: No Hx Respiratory Tract Infection: No Hx Sleep Apnea: No Hx Tuberculosis: No - NEUROLOGICAL Hx Neurological Disorder: No Hx Alzheimer's Disease: No HX Cerebrovascular Accident: No Hx Dementia: No Hx Dizziness: No Hx Meningitis: No Hx Migraine: No Hx Multiple Sclerosis: No Hx Paralysis: No Hx Parkinson's Disease: No Hx Seizures: No Hx Syncope: No Hx Transient Ischemic Attacks (TIA): No Hx Vertigo: No Other/Comment: occasional headache - HEENT Hx HEENT Problems: No Hx Blind: No Hx Cataracts: No Hx Deafness: No Hx Difficulty Chewing: No Hx Epistaxis: No Hx Glaucoma: No Hx Macular Degeneration: No Hx Sinusitis: No - RENAL Hx Chronic Kidney Disease: No Hx Dialysis: No Hx Kidney Stones: No Hx Neurogenic Bladder: No Hx Pyelonephritis: No Hx Renal (Kidney) Cancer: No Hx Renal Failure: No - ENDOCRINE/METABOLIC Hx Endocrine Disorders: Yes Hx Adrenal Cancer: No Hx Diabetes Insipidus: No Hx Diabetes Mellitus Type 1: No Hx Diabetes Mellitus Type 2: No Hx Hyperthyroidism: No Hx Hypothyroidism: No Hx Systemic Lupus Erythematosus: Yes - HEMATOLOGICAL/ONCOLOGICAL Hx Blood Disorders: No Hx AIDS: No Hx Anemia: No Hx Blood Transfusions: No Hx Blood Transfusion Reaction: No Hx Bruising: No Hx Cancer: No Hx Chemotherapy: No Hx Cirrhosis: No Hx Gum Bleeding: No Hx Hemophilia: No Hx Hepatitis A: No Hx Hepatitis B: No Hx Hepatitis C: No Hx Human Immunodeficiency Virus (HIV): No Hx Leukemia: No Hx Metastesis: No Hx Shingles: No Hx Sickle Cell Disease: No Hx Unexplained Bleeding: No Hx von Willebrand's Disease: No - INTEGUMENTARY Hx Dermatological Problems: No Hx Basil Cell: No Hx Rodriguez: No Hx Cellulitis: No Hx Eczema: No Hx Melanoma: No Hx Psoriasis: No Hx Squamous Cell: No - MUSCULOSKELETAL/RHEUMATOLOGICAL Hx Musculoskeletal Disorders: No Hx Arthritis: Yes Hx Back Pain: Yes Hx Degenerative Joint Disease: No Hx Falls: No Hx Fractures: No Hx Gout: No Hx Herniated Disk: No Hx Myasthenia Gravis: No Hx Osteoarthritis: No Hx Osteomyelitis: No Hx Osteoporosis: No Hx Rhabdomyolysis: No Hx Rheumatoid Arthritis: Yes Hx Spinal Stenosis: No Hx Unsteady Gait: No - GASTROINTESTINAL Hx Gastrointestinal Disorders: No Hx Bowel Surgery: No Hx Clostridium Difficile: No Hx Colitis: No Hx Colostomy: No Hx Constipation: No Hx Crohn's Disease: No Hx Diarrhea: No Hx Diverticulitis: No Hx Esophageal Varices: No Hx Fatty Liver Disease: No Hx Gall Bladder Disease: No Hx Gastritis: No Hx Gastroesophageal Reflux: No Hx Hemorrhoids: No Hx Ileostomy: No Hx Irritable Bowel: No Hx Liver Failure: No Hx Nausea: Yes Hx Pancreatitis: No HX Swallowing Problems: No Hx Ulcer: No Hx Vomiting: Yes - GENITOURINARY/GYNECOLOGICAL Hx Genitourinary Disorders: No Hx Bladder Cancer: No Hx Bladder Stone: No Hx Cervical Cancer: No Hx Hematuria: No Hx Incontinence: No Hx Ovarian Cancer: No Hx Postmenopausal Bleeding: No Hx Reproductive Disorders: No Hx Sexually Transmitted Disorders: No Hx Uterine Cancer: No Hx Urinary Tract Infection: No - PSYCHIATRIC Hx Psychophysiologic Disorder: No Hx Anxiety: No Hx Bipolar Disorder: No Hx Depression: No Hx Emotional Abuse: No Hx Hallucinations: No Hx Panic Symptoms: No Hx Paranoia: No Hx Post Traumatic Stress Disorder: No Hx Psychosis: No Hx Physical Abuse: No Hx Schizophrenia: No Hx Sexual Abuse: No Hx Substance Use: No - SURGICAL HISTORY Hx Surgeries: No Hx Abdominal Aortic Aneurysm Repair: No Hx Amputation: No Hx Angiogram: No Hx Angioplasty: No Hx Appendectomy: No Hx Arteriovenous Shunt: No Hx Arthroscopy: No Hx Bile Duct Stent: No Hx Breast Biopsy: No Hx Cataract Extraction: No Hx Cardiac Catheterization: No Hx Carotid Endarterectomy: No Hx Section: No (unknown by , only with her 4 years) Hx Cholecystectomy: No Hx Coronary Artery Bypass Graft: No Hx Coronary Stent: No Hx Dilation and Curettage: No Hx Eye Surgery: No Hx Femoral-Popliteal Bypass Graft: No Hx Gastric Bypass Surgery: No Hx Herniorrhaphy: No Hx Hysterectomy: No Hx Joint Replacement: No Hx Kidney Transplant: No Hx Liver Transplant: No Hx Mastectomy: No Hx Musculoskeletal Surgery: No Hx Open Heart Surgery: No Hx Open Reduction Internal Fixation: No Hx Orthopedic Surgery: No Hx Parathyroidectomy: No Hx Penile Implant: No Hx Pulmonary Surgery: No Hx Splenectomy: No Hx Thyroidectomy: No Hx Tonsillectomy: No Hx Tubal Ligation: No Hx Valve Replacement: No Hx Vascular Surgery: No Hx Vascular Access Device: No - ANESTHESIA Hx Anesthesia: No Hx Anesthesia Reactions: No Hx Malignant Hyperthermia: No Has any member of the family had a problem w/ anesthesia?: No Meds Home Medications: Home Medication List Medication Instructions Recorded Confirmed Type Ertapenem 1gm in NS 50ml [Invanz] 1 gm IV DAILY #7 bag 02/05/18 Rx Pantoprazole [Protonix EC Tab] 40 mg PO DAILY ect 02/05/18 Rx Potassium Chloride [K-Dur 20 mEq 20 meq PO BID tab 02/05/18 Rx ER Tab] Allergies/Adverse Reactions: Allergies Allergy/AdvReac Type Severity Reaction Status Date / Time No Known Allergies Allergy Verified 02/05/18 18:09 Physical Exam - Constitutional Appears: Non-toxic, No Acute Distress - Head Exam Head Exam: ATRAUMATIC, NORMOCEPHALIC - Eye Exam Eye Exam: EOMI, Normal appearance, PERRL Pupil Exam: NORMAL ACCOMODATION - ENT Exam ENT Exam: Mucous Membranes Moist - Neck Exam Neck exam: Positive for: Normal Inspection - Respiratory Exam Respiratory Exam: Clear to Auscultation Bilateral, NORMAL BREATHING PATTERN - Cardiovascular Exam Cardiovascular Exam: REGULAR RHYTHM, +S1, +S2 - GI/Abdominal Exam GI & Abdominal Exam: Normal Bowel Sounds, Soft - Rectal Exam Rectal Exam: Deferred - Extremities Exam Extremities exam: Positive for: normal capillary refill, normal inspection, pedal pulses present - Back Exam Back exam: NORMAL INSPECTION - Neurological Exam Neurological exam: Alert, CN II-XII Intact, Oriented x3 - Psychiatric Exam Psychiatric exam: Normal Affect, Normal Mood - Skin Skin Exam: Dry, Normal Color, Warm Results - Vital Signs Recent Vital Signs: Last Vital Signs Temp 98.5 F 01/29/18 15:41 Pulse 83 01/29/18 15:41 Resp 20 01/29/18 15:41 BP 104/73 01/29/18 15:41 Pulse Ox 98 01/29/18 15:41 - Labs Result Diagrams: 02/02/18 09:57 02/05/18 05:56 Labs: Laboratory Results - last 24 hr 01/28/18 01/29/18 01/29/18 07:39 09:30 09:30 WBC 14.0 H RBC 3.95 Hgb 12.1 D Hct 35.9 MCV 90.8 MCH 30.5 MCHC 33.6 RDW 15.5 H Plt Count 144 MPV 9.1 Neut % (Auto) 91.4 H Lymph % (Auto) 4.6 L Wagoner % (Auto) 3.9 Eos % (Auto) 0.0 Baso % (Auto) 0.1 Neut # (Auto) 12.8 H Lymph # (Auto) 0.6 L Wagoner # (Auto) 0.5 Eos # (Auto) 0.0 Baso # (Auto) 0.0 Neutrophils % (Manual) 85 H Lymphocytes % (Manual) 7 L Monocytes % (Manual) 8 Platelet Estimate Slightly decreased L Large Platelets Present Anisocytosis (manual) Slight Macrocytosis (manual) Slight Tear Drop Cells Slight Ovalocytes Slight Sodium 147 Potassium 3.0 L Chloride 112 H Carbon Dioxide 20 L Anion Gap 18 BUN 14 Creatinine 1.0 Est GFR ( Amer) > 60 Est GFR (Non-Af Amer) 60 Random Glucose 121 H Calcium 8.2 L Total Bilirubin 0.8 AST 25 ALT 30 Alkaline Phosphatase 56 Total Protein 6.8 Albumin 3.1 L D Globulin 3.7 Albumin/Globulin Ratio 0.8 L TSH 3rd Generation 1.29 C. difficile Ag & Toxin Negative - Imaging and Cardiology CT scan - head Additional comment: HISTORY: AMS COMPARISON: 12/13/2011. TECHNIQUE: Axial computed tomography images were obtained through the head/brain without intravenous contrast. Coronal and sagittal reconstructed images. Radiation dose: Total exam DLP = 767.44 mGy-cm. This CT exam was performed using one or more of the following dose reduction techniques: Automated exposure control, adjustment of the mA and/or kV according to patient size, and/or use of iterative reconstruction technique. FINDINGS: HEMORRHAGE: No intracranial hemorrhage. BRAIN: No mass effect or edema. No atrophy or chronic microvascular ischemic changes. VENTRICLES: Unremarkable. No hydrocephalus. CALVARIUM: Unremarkable. PARANASAL SINUSES: Unremarkable as visualized. No significant inflammatory changes. MASTOID AIR CELLS: Unremarkable as visualized. No inflammatory changes. OTHER FINDINGS: None. IMPRESSION: No acute intracranial abnormalities. No significant findings to account for the clinical presentation. No significant interval change compared to the prior examination(s). CT Abd/Pelvis Additional comment: PROCEDURE: CT Abdomen and Pelvis with contrast HISTORY: Nausea, abdominal pain, vomiting and diarrhea COMPARISON: None. TECHNIQUE: CT scan of the abdomen and pelvis was performed after administration of intravenous contrast. Oral contrast was not administered. Coronal and sagittal reformatted images were obtained. Contrast dose: 95 mL Omnipaque 300 Radiation dose: Total exam DLP = 466.46 mGy-cm. This CT exam was performed using one or more of the following dose reduction techniques: Automated exposure control, adjustment of the mA and/or kV according to patient size, and/or use of iterative reconstruction technique. FINDINGS: LOWER THORAX: The lung bases are clear. There is linear atelectasis/scarring in the lingula P LIVER: There is mild hepatomegaly and diffuse fatty infiltration in the liver. No gross lesion or ductal dilatation. GALLBLADDER AND BILE DUCTS: There are no calcified gallstones. PANCREAS: Normal in size with homogeneous enhancement. No gross lesion or ductal dilatation. SPLEEN: The spleen is normal in size. There is a 2.0 cm lobular fluid density lesion in the lower pole of the spleen. ADRENALS: Normal in size without discrete nodule. KIDNEYS AND URETERS: Normal in size with homogeneous enhancement. No hydronephrosis. No solid mass. VASCULATURE: No aortic aneurysm. BOWEL: There are fluid filled normal caliber small bowel loops. There is also fluid in normal caliber colon. No bowel dilatation or obstruction. APPENDIX: Normal appendix. PERITONEUM: No free fluid. No free air. LYMPH NODES: No enlarged lymph nodes. BLADDER: The urinary bladder is partially decompressed and there is apparent moderate mural thickening of the bladder wall with minimal perivesical fat stranding. REPRODUCTIVE: The uterus is normal in size. BONES: No acute fracture. Diffuse bone demineralization. OTHER FINDINGS: None. IMPRESSION: 1. Fluid-filled normal caliber small bowel loops and colon without evidence for bowel dilatation or obstruction. Findings are most compatible with nonspecific infectious/inflammatory enteritis and colitis. 2. 2.0 cm simple cyst in the lower pole of the spleen. [ Reading ] [ Conclusion ] Assessment & Plan (1) Sepsis Assessment and Plan: UTI & Enterocolitis IVF IV Ciprofloxacin and Flagyl Blood Cultures Urine Cultures GI consult DVT/GI prophylaxis Status: Acute (2) Hypokalemia Assessment and Plan: Replace potassium monitor labs telemetry monitoring Status: Acute (3) SLE (systemic lupus erythematosus) Assessment and Plan: Resume home medications Status: Chronic (4) Rheumatoid arthritis Assessment and Plan: Resume home medications Status: Chronic
[2018-01-30] MEDS: Piperacillin/Tazobact 3.375 GM in Sodium Chloride 0.9% 100 ML IVPB SCH ×3 (00:29→16:22)
[2018-01-30] MEDS: metroNIDAZOLE 500mg/100ml NS 100 ML IVPB SCH ×3 (00:30→16:23)
[2018-01-30] MEDS: Enoxaparin 40 mg Syringe SC SCH ×2 (09:00→09:41)
[2018-01-30 09:11] LABS: HEMOGLOBIN 11.1 g/dL (12.0-16.0); MEAN CELL VOLUME 91.4 fl (81.0-99.0); MEAN CORPUSCULAR HEMOGLOBIN 29.5 pg (27.0-31.0); MEAN CORPUSCULAR HGB CONC 32.3 g/dL (33.0-37.0); RBC 3.75 Mil/uL (3.80-5.20); RED CELL DISTRIBUTION WIDTH 15.6 % (11.5-14.5); WHITE BLOOD COUNT 11.1 K/uL (4.8-10.8)
[2018-01-30 09:26] LABS: ALB/GLOB RATIO 0.8 (1.0-2.1); ALT/SGPT 30 U/L (9-52); AST/SGOT 23 U/L (14-36); BLOOD UREA NITROGEN 15 mg/dl (7-17); CALCIUM 8.7 mg/dL (8.4-10.2); GFR AFRICAN-AMERICAN > 60; GFR NON-AFRICAN AMERICAN > 60
--- NOTE | 2018-01-30 09:36 | CP.PCM.PN ---
<Duy Howell - Last Filed: 01/30/18 09:33> Subjective - Date & Time of Evaluation Date of Evaluation: 01/30/18 Time of Evaluation: 07:10 - Subjective Subjective: PGY5 GI Fellow Progress Note Patient seen and examined bedside this morning. The patient states that she is feeling better overall and denies any significant abdominal pain. No nausea or vomiting. Does admit to ongoing diarrhea with 2-3 loose stool since last night. No fever/chills. 12 system ROS performed and negative except where stated. Objective - Vital Signs/Intake and Output Vital Signs (last 24 hours): Temp Pulse Resp BP Pulse Ox 99.2 F 83 20 133/93 H 95 01/30/18 08:20 01/30/18 08:20 01/30/18 08:20 01/30/18 08:20 01/30/18 08:20 - Medications Medications: Current Medications Acetaminophen (Tylenol 325mg Tab) 650 mg PO Q4 PRN PRN Reason: feve 101 and above Baclofen (Lioresal) 10 mg PO Q12 PRN PRN Reason: Muscle spasm Cholecalciferol (Vitamin D) 5,000 intlu PO DAILY [facility] Last Admin: 01/29/18 10:08 Dose: 5,000 intlu Enalapril Maleate (Vasotec) 10 mg PO DAILY [facility] Last Admin: 01/29/18 10:08 Dose: Not Given Enoxaparin Sodium (Lovenox) 40 mg SC DAILY [facility] PRN Reason: Protocol Last Admin: 01/29/18 09:46 Dose: 40 mg Folic Acid (Folic Acid) 1 mg PO DAILY [facility] Last Admin: 01/29/18 10:06 Dose: 1 mg Home Med (Diflunisal) 500 mg PO Q12 [facility] Last Admin: 01/29/18 22:00 Dose: 500 mg Hydroxychloroquine Sulfate (Plaquenil) 200 mg PO Q12 [facility] PRN Reason: Protocol Last Admin: 01/29/18 22:02 Dose: Not Given Piperacillin Sod/Tazobactam (Sod 3.375 gm/ Sodium Chloride) 100 mls @ 100 mls/ hr IVPB Q8 [facility] PRN Reason: Protocol Last Admin: 01/30/18 00:29 Dose: 100 mls/hr Metronidazole (Flagyl 500mg/100ml Ns) 100 mls @ 100 mls/hr IVPB Q8 [facility] PRN Reason: Protocol Last Admin: 01/30/18 00:30 Dose: 100 mls/hr Methotrexate (Methotrexate) 12.5 mg PO QWK [facility] PRN Reason: Protocol Ondansetron HCl (Zofran Odt) 4 mg PO Q6 PRN PRN Reason: Nausea/Vomiting Last Admin: 01/29/18 04:04 Dose: 4 mg Prednisone (Prednisone Tab) 5 mg PO DAILY [facility] Last Admin: 01/29/18 10:07 Dose: 5 mg - Labs Labs: 01/30/18 08:00 01/30/18 08:00 PT 13.9 Seconds (9.8-13.1) H 01/28/18 13:05 INR 1.3 (0.9-1.2) H 01/28/18 13:05 APTT 38.1 Seconds (25.6-37.1) H 01/28/18 13:05 - Constitutional Appears: Non-toxic, No Acute Distress - Eye Exam Eye Exam: EOMI, PERRL - ENT Exam ENT Exam: Mucous Membranes Moist - Respiratory Exam Respiratory Exam: Clear to Ausculation Bilateral. absent: Rales, Rhonchi, Wheezes - Cardiovascular Exam Cardiovascular Exam: RRR, +S1, +S2 - GI/Abdominal Exam GI & Abdominal Exam: Soft, Tenderness (mild LLQ/RLQ abdominal pain), Normal Bowel Sounds. absent: Distended, Firm, Guarding, Rigid, Organomegaly - Extremities Exam Extremities Exam: Normal Inspection. absent: Pedal Edema - Neurological Exam Neurological Exam: Alert, Awake, Oriented x3 - Psychiatric Exam Psychiatric exam: Normal Affect, Normal Mood - Skin Skin Exam: Dry, Warm Assessment and Plan - Assessment and Plan (Free Text) Assessment: Patient is a 47yo female with PMHx significant for SLE, rheumatoid arthritis, hypertension who presented to the hospital with several days of nausea, vomiting , diarrhea and fever. -Acute enteritis -E coli UTI Plan: -On chronic immunosuppression with MTX and prednisone -Afebrile since admission -On empiric coverage with Zosyn/Flagyl since admission - would complete 10 day course -Stool culture and studies pending -Urine culture + with E coli - adequate coverage with zosyn -Advance to full liquid diet for breakfast; if tolerating can continue to advance to bland, lactose free diet -May benefit from outpatient endoscopic evaluation if symptoms ongoing <Mendez Mackey - Last Filed: 01/30/18 09:51> Objective - Vital Signs/Intake and Output Vital Signs (last 24 hours): Temp Pulse Resp BP Pulse Ox 99.2 F 83 20 133/93 H 95 01/30/18 08:20 01/30/18 08:20 01/30/18 08:20 01/30/18 08:20 01/30/18 08:20 - Medications Medications: Current Medications Acetaminophen (Tylenol 325mg Tab) 650 mg PO Q4 PRN PRN Reason: feve 101 and above Baclofen (Lioresal) 10 mg PO Q12 PRN PRN Reason: Muscle spasm Cholecalciferol (Vitamin D) 5,000 intlu PO DAILY [facility] Last Admin: 01/30/18 09:43 Dose: 5,000 intlu Enalapril Maleate (Vasotec) 10 mg PO DAILY [facility] Last Admin: 01/29/18 10:08 Dose: Not Given Enoxaparin Sodium (Lovenox) 40 mg SC DAILY [facility] PRN Reason: Protocol Last Admin: 01/30/18 09:41 Dose: 40 mg Folic Acid (Folic Acid) 1 mg PO DAILY [facility] Last Admin: 01/30/18 09:41 Dose: 1 mg Home Med (Diflunisal) 500 mg PO Q12 [facility] Last Admin: 01/30/18 09:41 Dose: 500 mg Hydroxychloroquine Sulfate (Plaquenil) 200 mg PO Q12 [facility] PRN Reason: Protocol Last Admin: 01/30/18 09:42 Dose: 200 mg Piperacillin Sod/Tazobactam (Sod 3.375 gm/ Sodium Chloride) 100 mls @ 100 mls/ hr IVPB Q8 [facility] PRN Reason: Protocol Last Admin: 01/30/18 09:40 Dose: 100 mls/hr Metronidazole (Flagyl 500mg/100ml Ns) 100 mls @ 100 mls/hr IVPB Q8 [facility] PRN Reason: Protocol Last Admin: 01/30/18 09:40 Dose: 100 mls/hr Methotrexate (Methotrexate) 12.5 mg PO QWK [facility] PRN Reason: Protocol Ondansetron HCl (Zofran Odt) 4 mg PO Q6 PRN PRN Reason: Nausea/Vomiting Last Admin: 01/29/18 04:04 Dose: 4 mg Prednisone (Prednisone Tab) 5 mg PO DAILY [facility] Last Admin: 01/30/18 09:43 Dose: 5 mg - Labs Labs: 01/30/18 08:00 01/30/18 08:00 PT 13.9 Seconds (9.8-13.1) H 01/28/18 13:05 INR 1.3 (0.9-1.2) H 01/28/18 13:05 APTT 38.1 Seconds (25.6-37.1) H 01/28/18 13:05 Attending/Attestation - Attestation I have personally seen and examined this patient.: Yes I have fully participated in the care of the patient.: Yes I have reviewed all pertinent clinical information, including history, physical exam and plan: Yes Notes (Text): 01/30/18 09:49 I have seen and examined patient with GI fellow. No acute events overnight, she is seen resting in bed comfortably. She reports two episodes of loose bowel movements overnight though slightly improved consistency along with improving left sided abdominal pain. She denies nausea, vomiting, fever/ chills. Tolerating PO liquids without difficulty. SLE RA HTN UTI Abdominal pain, diarrhea - likely resolving gastroenteritis - Advance diet as tolerated - Continue with antibiotic therapy - Follow up stool studies - No further planned GI interventions, patient would benefit from outpatient follow up after hospital discharge. Will sign off case, please reconsult as necessary, thank you.
[2018-01-30] MEDS: DIFLUNISAL 500 MG PO SCH ×2 (09:41→21:31)
[2018-01-30] MEDS: Cholecalciferol 1,000 INTLU TAB PO SCH (09:43)
[2018-01-30] MEDS ORDERED: Potassium Chloride 20 mEq ER Tab PO ONE (18:54)
--- NOTE | 2018-01-30 21:57 | CP.PCM.PN ---
Subjective - Date & Time of Evaluation Date of Evaluation: 01/30/18 Time of Evaluation: 17:00 - Subjective Subjective: Still has diarrhea, feels weak. Denies nausea, vomiting. Had low grade fever Objective - Vital Signs/Intake and Output Vital Signs (last 24 hours): Temp Pulse Resp BP Pulse Ox 98.8 F 79 20 125/85 97 01/30/18 19:18 01/30/18 19:18 01/30/18 19:18 01/30/18 19:18 01/30/18 19:18 - Medications Medications: Current Medications Acetaminophen (Tylenol 325mg Tab) 650 mg PO Q4 PRN PRN Reason: feve 101 and above Baclofen (Lioresal) 10 mg PO Q12 PRN PRN Reason: Muscle spasm Cholecalciferol (Vitamin D) 5,000 intlu PO DAILY [facility] Last Admin: 01/30/18 09:43 Dose: 5,000 intlu Enalapril Maleate (Vasotec) 10 mg PO DAILY [facility] Last Admin: 01/30/18 09:49 Dose: 10 mg Enoxaparin Sodium (Lovenox) 40 mg SC DAILY [facility] PRN Reason: Protocol Last Admin: 01/30/18 09:00 Dose: Not Given Folic Acid (Folic Acid) 1 mg PO DAILY [facility] Last Admin: 01/30/18 09:41 Dose: 1 mg Home Med (Diflunisal) 500 mg PO Q12 [facility] Last Admin: 01/30/18 21:31 Dose: 500 mg Hydroxychloroquine Sulfate (Plaquenil) 200 mg PO Q12 [facility] PRN Reason: Protocol Last Admin: 01/30/18 21:31 Dose: 200 mg Piperacillin Sod/Tazobactam (Sod 3.375 gm/ Sodium Chloride) 100 mls @ 100 mls/ hr IVPB Q8 [facility] PRN Reason: Protocol Last Admin: 01/30/18 16:22 Dose: 100 mls/hr Metronidazole (Flagyl 500mg/100ml Ns) 100 mls @ 100 mls/hr IVPB Q8 [facility] PRN Reason: Protocol Last Admin: 01/30/18 16:23 Dose: 100 mls/hr Methotrexate (Methotrexate) 12.5 mg PO QWK [facility] PRN Reason: Protocol Ondansetron HCl (Zofran Odt) 4 mg PO Q6 PRN PRN Reason: Nausea/Vomiting Last Admin: 01/29/18 04:04 Dose: 4 mg Prednisone (Prednisone Tab) 5 mg PO DAILY [facility] Last Admin: 01/30/18 09:43 Dose: 5 mg - Labs Labs: 01/30/18 08:00 01/30/18 08:00 PT 13.9 Seconds (9.8-13.1) H 01/28/18 13:05 INR 1.3 (0.9-1.2) H 01/28/18 13:05 APTT 38.1 Seconds (25.6-37.1) H 01/28/18 13:05 - Constitutional Appears: Non-toxic, No Acute Distress - Head Exam Head Exam: ATRAUMATIC, NORMOCEPHALIC - Respiratory Exam Respiratory Exam: Clear to Ausculation Bilateral, NORMAL BREATHING PATTERN - Cardiovascular Exam Cardiovascular Exam: REGULAR RHYTHM, +S1, +S2 - GI/Abdominal Exam GI & Abdominal Exam: Soft, Normal Bowel Sounds - Neurological Exam Neurological Exam: Alert, Oriented x3 - Psychiatric Exam Psychiatric exam: Normal Affect, Normal Mood - Skin Skin Exam: Normal Color, Warm Assessment and Plan (1) Sepsis Assessment & Plan: UTI & Enterocolitis IVF IV Ciprofloxacin and Flagyl F/u Blood Cultures F/u Urine Cultures F/u c-diff and stool cultures GI consult appreciated DVT/GI prophylaxis Status: Acute (2) Hypokalemia Assessment & Plan: replace potassium monitor labs Status: Acute (3) Rheumatoid arthritis Assessment & Plan: on medications Status: Chronic (4) SLE (systemic lupus erythematosus) Assessment & Plan: on medications Status: Chronic
[2018-01-31] MEDS: metroNIDAZOLE 500mg/100ml NS 100 ML IVPB SCH ×3 (00:54→17:00)
[2018-01-31] MEDS: Piperacillin/Tazobact 3.375 GM in Sodium Chloride 0.9% 100 ML IVPB SCH ×3 (00:55→17:42)
[2018-01-31 08:13] LABS: HEMOGLOBIN 10.8 g/dL (12.0-16.0); MEAN CELL VOLUME 91.6 fl (81.0-99.0); MEAN CORPUSCULAR HEMOGLOBIN 30.6 pg (27.0-31.0); MEAN CORPUSCULAR HGB CONC 33.4 g/dL (33.0-37.0); RBC 3.54 Mil/uL (3.80-5.20); WHITE BLOOD COUNT 9.4 K/uL (4.8-10.8)
[2018-01-31 08:29] LABS: ALB/GLOB RATIO 0.7 (1.0-2.1); ALBUMIN 2.7 g/dL (3.5-5.0); ALT/SGPT 37 U/L (9-52); AST/SGOT 24 U/L (14-36); BLOOD UREA NITROGEN 14 mg/dl (7-17); CALCIUM 8.7 mg/dL (8.4-10.2); GFR AFRICAN-AMERICAN > 60; GFR NON-AFRICAN AMERICAN > 60
[2018-01-31] MEDS: Enoxaparin 40 mg Syringe SC SCH ×2 (10:05→10:16)
[2018-01-31] MEDS: DIFLUNISAL 500 MG PO SCH ×2 (10:07→22:07)
[2018-01-31] MEDS: Cholecalciferol 1,000 INTLU TAB PO SCH (10:07)
--- NOTE | 2018-01-31 17:23 | CP.PCM.PN ---
Subjective - Date & Time of Evaluation Date of Evaluation: 01/31/18 Time of Evaluation: 10:15 - Subjective Subjective: Still has diarrhea, denies nausea/vomiting. Low grade fever, denies cp or sob. Feels weak Objective - Vital Signs/Intake and Output Vital Signs (last 24 hours): Temp Pulse Resp BP Pulse Ox 98.5 F 73 20 120/78 98 01/31/18 16:41 01/31/18 16:41 01/31/18 16:41 01/31/18 16:41 01/31/18 16:41 - Medications Medications: Current Medications Acetaminophen (Tylenol 325mg Tab) 650 mg PO Q4 PRN PRN Reason: feve 101 and above Baclofen (Lioresal) 10 mg PO Q12 PRN PRN Reason: Muscle spasm Cholecalciferol (Vitamin D) 5,000 intlu PO DAILY [facility] Last Admin: 01/31/18 10:07 Dose: 5,000 intlu Enalapril Maleate (Vasotec) 10 mg PO DAILY [facility] Last Admin: 01/31/18 10:07 Dose: 10 mg Enoxaparin Sodium (Lovenox) 40 mg SC DAILY [facility] PRN Reason: Protocol Last Admin: 01/31/18 10:16 Dose: Not Given Folic Acid (Folic Acid) 1 mg PO DAILY [facility] Last Admin: 01/31/18 10:05 Dose: 1 mg Home Med (Diflunisal) 500 mg PO Q12 [facility] Last Admin: 01/31/18 10:07 Dose: 500 mg Hydroxychloroquine Sulfate (Plaquenil) 200 mg PO Q12 [facility] PRN Reason: Protocol Last Admin: 01/31/18 10:05 Dose: 200 mg Piperacillin Sod/Tazobactam (Sod 3.375 gm/ Sodium Chloride) 100 mls @ 100 mls/ hr IVPB Q8 [facility] PRN Reason: Protocol Last Admin: 01/31/18 09:41 Dose: 100 mls/hr Metronidazole (Flagyl 500mg/100ml Ns) 100 mls @ 100 mls/hr IVPB Q8 [facility] PRN Reason: Protocol Last Admin: 01/31/18 10:00 Dose: 100 mls/hr Methotrexate (Methotrexate) 12.5 mg PO QWK [facility] PRN Reason: Protocol Ondansetron HCl (Zofran Odt) 4 mg PO Q6 PRN PRN Reason: Nausea/Vomiting Last Admin: 01/29/18 04:04 Dose: 4 mg Prednisone (Prednisone Tab) 5 mg PO DAILY [facility] Last Admin: 01/31/18 10:06 Dose: 5 mg - Labs Labs: 01/31/18 07:06 01/31/18 07:06 PT 13.9 Seconds (9.8-13.1) H 01/28/18 13:05 INR 1.3 (0.9-1.2) H 01/28/18 13:05 APTT 38.1 Seconds (25.6-37.1) H 01/28/18 13:05 - Constitutional Appears: Non-toxic, No Acute Distress - Head Exam Head Exam: ATRAUMATIC, NORMOCEPHALIC - Respiratory Exam Respiratory Exam: Clear to Ausculation Bilateral, NORMAL BREATHING PATTERN - Cardiovascular Exam Cardiovascular Exam: REGULAR RHYTHM, +S1, +S2 - GI/Abdominal Exam GI & Abdominal Exam: Soft, Normal Bowel Sounds - Neurological Exam Neurological Exam: Alert, Oriented x3 - Psychiatric Exam Psychiatric exam: Normal Affect - Skin Skin Exam: Dry, Normal Color, Warm Assessment and Plan (1) Sepsis Assessment & Plan: UTI & Enterocolitis IV hydration continue Ciprofloxacin and Flagyl F/u Blood Cultures F/u Urine Cultures C-diff negative F/u rest of stool cultures GI consult appreciated DVT/GI prophylaxis Status: Acute (2) Hypokalemia Assessment & Plan: supplement potassium monitor labs Status: Acute (3) Rheumatoid arthritis Assessment & Plan: continue medications Status: Chronic (4) SLE (systemic lupus erythematosus) Assessment & Plan: continue medications Status: Chronic
[2018-01-31] MEDS ORDERED: Potassium Chloride 20 mEq ER Tab PO ONE (20:00)
[2018-02-01] MEDS: metroNIDAZOLE 500mg/100ml NS 100 ML IVPB SCH ×2 (01:04→08:18)
[2018-02-01] MEDS: Piperacillin/Tazobact 3.375 GM in Sodium Chloride 0.9% 100 ML IVPB SCH ×3 (01:05→16:15)
[2018-02-01 05:50] LABS: BLOOD UREA NITROGEN 11 mg/dl (7-17); CALCIUM 8.6 mg/dL (8.4-10.2); GFR AFRICAN-AMERICAN > 60; GFR NON-AFRICAN AMERICAN > 60
[2018-02-01] MEDS: DIFLUNISAL 500 MG PO SCH ×2 (08:18→20:22)
[2018-02-01] MEDS: Cholecalciferol 1,000 INTLU TAB PO SCH (08:20)
[2018-02-01] MEDS: Enoxaparin 40 mg Syringe SC SCH (08:22)
--- NOTE | 2018-02-01 22:48 | CP.PCM.PN ---
Subjective - Date & Time of Evaluation Date of Evaluation: 02/01/18 Time of Evaluation: 13:00 - Subjective Subjective: Feels slightly better but still has loose BMs Denies N/V/F/C Objective - Vital Signs/Intake and Output Vital Signs (last 24 hours): Temp Pulse Resp BP Pulse Ox 99.0 F 75 20 124/84 98 02/01/18 20:15 02/01/18 20:30 02/01/18 20:15 02/01/18 20:15 02/01/18 20:15 Intake and Output: 02/01/18 02/02/18 18:59 06:59 Intake Total 200 Balance 200 - Medications Medications: Current Medications Acetaminophen (Tylenol 325mg Tab) 650 mg PO Q4 PRN PRN Reason: feve 101 and above Baclofen (Lioresal) 10 mg PO Q12 PRN PRN Reason: Muscle spasm Cholecalciferol (Vitamin D) 5,000 intlu PO DAILY [facility] Last Admin: 02/01/18 08:20 Dose: 5,000 intlu Enalapril Maleate (Vasotec) 10 mg PO DAILY [facility] Last Admin: 02/01/18 08:20 Dose: 10 mg Folic Acid (Folic Acid) 1 mg PO DAILY [facility] Last Admin: 02/01/18 08:19 Dose: 1 mg Home Med (Diflunisal) 500 mg PO Q12 [facility] Last Admin: 02/01/18 20:22 Dose: 500 mg Piperacillin Sod/Tazobactam (Sod 3.375 gm/ Sodium Chloride) 100 mls @ 100 mls/ hr IVPB Q8 [facility] PRN Reason: Protocol Last Admin: 02/01/18 16:15 Dose: 100 mls/hr Methotrexate (Methotrexate) 12.5 mg PO QWK [facility] PRN Reason: Protocol Ondansetron HCl (Zofran Odt) 4 mg PO Q6 PRN PRN Reason: Nausea/Vomiting Last Admin: 01/29/18 04:04 Dose: 4 mg Prednisone (Prednisone Tab) 5 mg PO DAILY [facility] Last Admin: 02/01/18 08:19 Dose: 5 mg - Labs Labs: 01/31/18 07:06 02/01/18 04:15 PT 13.9 Seconds (9.8-13.1) H 01/28/18 13:05 INR 1.3 (0.9-1.2) H 01/28/18 13:05 APTT 38.1 Seconds (25.6-37.1) H 01/28/18 13:05 - Constitutional Appears: Well, No Acute Distress - Head Exam Head Exam: ATRAUMATIC, NORMOCEPHALIC - Respiratory Exam Respiratory Exam: Clear to Ausculation Bilateral, NORMAL BREATHING PATTERN - Cardiovascular Exam Cardiovascular Exam: REGULAR RHYTHM, +S1, +S2 - GI/Abdominal Exam GI & Abdominal Exam: Soft, Normal Bowel Sounds - Neurological Exam Neurological Exam: Alert, Normal Gait, Oriented x3 - Psychiatric Exam Psychiatric exam: Normal Affect, Normal Mood - Skin Skin Exam: Normal Color, Warm Assessment and Plan (1) Sepsis Assessment & Plan: UTI & Enterocolitis Positive blood cultures ID consult IVF Continue antibiotics C-diff negative GI on board DVT/GI prophylaxis Status: Acute (2) Hypokalemia Assessment & Plan: potassium replacement monitor labs Status: Acute (3) Rheumatoid arthritis Assessment & Plan: on medications Status: Chronic (4) SLE (systemic lupus erythematosus) Assessment & Plan: on medications Status: Chronic
[2018-02-02] MEDS: Piperacillin/Tazobact 3.375 GM in Sodium Chloride 0.9% 100 ML IVPB SCH ×2 (00:08→09:43)
--- NOTE | 2018-02-02 09:19 | RAD ---
HISTORY: fever COMPARISON: Chest radiographs 01/28/2018. TECHNIQUE: Chest PA and lateral FINDINGS: LUNGS: No active pulmonary disease. PLEURA: No significant pleural effusion identified. No pneumothorax apparent. CARDIOVASCULAR: Cardiac silhouette appears prominent in this PA frontal view suspicious for at least borderline cardiomegaly with no definite pulmonary derangement appreciable. OSSEOUS STRUCTURES: No significant abnormalities. VISUALIZED UPPER ABDOMEN: Normal. OTHER FINDINGS: None. IMPRESSION: Borderline cardiomegaly. No acute infiltrate pleural effusion or pneumothorax. No definite pulmonary vascular derangement identified.
[2018-02-02] MEDS: DIFLUNISAL 500 MG PO SCH ×2 (09:40→20:21)
[2018-02-02] MEDS: Cholecalciferol 1,000 INTLU TAB PO SCH (09:41)
--- NOTE | 2018-02-02 09:53 | CP.PCM.CON ---
History of Present Illness - History of Present Illness History of Present Illness: Infectious Disease Consultation Note- Asked to see this patient at the request of for UTI and e.coli bacteremia HPI- Patient is a 47 year old female with pmh OD RA, SLE and HTn who was admitted with c/o nausea, vomiting and diarrhea along with fevers. Patient denies any abdominal pain. pt. states no more vomiting but still ah some nausea. her diarrhea she reports is nonbloody , slightly less than few days ago. denies any recent travel. denies any sick contacts. I'm asked to see the patient because her urine and blood cx grew e.coli. pt. denies any dysurea at this time. Allergy- NKDA Review of Systems - Review of Systems Review of Systems: ROS- + fever , denies any chills, denies any LEDEZMA, denies any cough or sob, denies any chest pain, denies any abd. pain, + nonbloody diarrhea, + nausea, vomiting has resolved. denies any dysurea no recent travel denies any sick contacts apparently pt. was on abx at end of december as per med records. Past Patient History - Infectious Disease Hx of Infectious Diseases: None - Past Medical History & Family History Past Medical History?: Yes - Past Social History Smoking Status: Never Smoked Alcohol: None Drugs: Denies Home Situation {Lives}: With Family - CARDIAC Hx Cardiac Disorders: No Hx Angina: No Hx Atrial Fibrillation: No Hx Cardia Arrhythmia: No Hx Circulatory Problems: No Hx Congestive Heart Failure: No Hx Heart Attack: No Hx Heart Murmur: No Hx Heart Transplant: No Hx Hypercholesterolemia: No Hx Hypertension: Yes Hx Hypotension: No Hx Internal Defibrillator: No Hx Mitral Valve Prolapse: No Hx Pacemaker: No Hx Peripheral Edema: No Hx Peripheral Vascular Disease: No - PULMONARY Hx Respiratory Disorders: No Hx Asthma: No Hx Bronchitis: No Hx Chronic Obstructive Pulmonary Disease (COPD): No Hx Emphysema: No Hx Lung Cancer: No Hx Pneumonia: No Hx Pulmonary Edema: No Hx Pulmonary Embolism: No Hx Respiratory Aspiration: No Hx Respiratory Tract Infection: No Hx Sleep Apnea: No Hx Tuberculosis: No - NEUROLOGICAL Hx Neurological Disorder: No Hx Alzheimer's Disease: No HX Cerebrovascular Accident: No Hx Dementia: No Hx Dizziness: No Hx Meningitis: No Hx Migraine: No Hx Multiple Sclerosis: No Hx Paralysis: No Hx Parkinson's Disease: No Hx Seizures: No Hx Syncope: No Hx Transient Ischemic Attacks (TIA): No Hx Vertigo: No Other/Comment: occasional headache - HEENT Hx HEENT Problems: No Hx Blind: No Hx Cataracts: No Hx Deafness: No Hx Difficulty Chewing: No Hx Epistaxis: No Hx Glaucoma: No Hx Macular Degeneration: No Hx Sinusitis: No - RENAL Hx Chronic Kidney Disease: No Hx Dialysis: No Hx Kidney Stones: No Hx Neurogenic Bladder: No Hx Pyelonephritis: No Hx Renal (Kidney) Cancer: No Hx Renal Failure: No - ENDOCRINE/METABOLIC Hx Endocrine Disorders: Yes Hx Adrenal Cancer: No Hx Diabetes Insipidus: No Hx Diabetes Mellitus Type 1: No Hx Diabetes Mellitus Type 2: No Hx Hyperthyroidism: No Hx Hypothyroidism: No Hx Systemic Lupus Erythematosus: Yes - HEMATOLOGICAL/ONCOLOGICAL Hx Blood Disorders: No Hx AIDS: No Hx Anemia: No Hx Blood Transfusions: No Hx Blood Transfusion Reaction: No Hx Bruising: No Hx Cancer: No Hx Chemotherapy: No Hx Cirrhosis: No Hx Gum Bleeding: No Hx Hemophilia: No Hx Hepatitis A: No Hx Hepatitis B: No Hx Hepatitis C: No Hx Human Immunodeficiency Virus (HIV): No Hx Leukemia: No Hx Metastesis: No Hx Shingles: No Hx Sickle Cell Disease: No Hx Unexplained Bleeding: No Hx von Willebrand's Disease: No - INTEGUMENTARY Hx Dermatological Problems: No Hx Basil Cell: No Hx Rodriguez: No Hx Cellulitis: No Hx Eczema: No Hx Melanoma: No Hx Psoriasis: No Hx Squamous Cell: No - MUSCULOSKELETAL/RHEUMATOLOGICAL Hx Musculoskeletal Disorders: No Hx Arthritis: Yes Hx Back Pain: Yes Hx Degenerative Joint Disease: No Hx Falls: No Hx Fractures: No Hx Gout: No Hx Herniated Disk: No Hx Myasthenia Gravis: No Hx Osteoarthritis: No Hx Osteomyelitis: No Hx Osteoporosis: No Hx Rhabdomyolysis: No Hx Rheumatoid Arthritis: Yes Hx Spinal Stenosis: No Hx Unsteady Gait: No - GASTROINTESTINAL Hx Gastrointestinal Disorders: No Hx Bowel Surgery: No Hx Clostridium Difficile: No Hx Colitis: No Hx Colostomy: No Hx Constipation: No Hx Crohn's Disease: No Hx Diarrhea: No Hx Diverticulitis: No Hx Esophageal Varices: No Hx Fatty Liver Disease: No Hx Gall Bladder Disease: No Hx Gastritis: No Hx Gastroesophageal Reflux: No Hx Hemorrhoids: No Hx Ileostomy: No Hx Irritable Bowel: No Hx Liver Failure: No Hx Nausea: Yes Hx Pancreatitis: No HX Swallowing Problems: No Hx Ulcer: No Hx Vomiting: Yes - GENITOURINARY/GYNECOLOGICAL Hx Genitourinary Disorders: No Hx Bladder Cancer: No Hx Bladder Stone: No Hx Cervical Cancer: No Hx Hematuria: No Hx Incontinence: No Hx Ovarian Cancer: No Hx Postmenopausal Bleeding: No Hx Reproductive Disorders: No Hx Sexually Transmitted Disorders: No Hx Uterine Cancer: No Hx Urinary Tract Infection: No - PSYCHIATRIC Hx Psychophysiologic Disorder: No Hx Anxiety: No Hx Bipolar Disorder: No Hx Depression: No Hx Emotional Abuse: No Hx Hallucinations: No Hx Panic Symptoms: No Hx Paranoia: No Hx Post Traumatic Stress Disorder: No Hx Psychosis: No Hx Physical Abuse: No Hx Schizophrenia: No Hx Sexual Abuse: No Hx Substance Use: No - SURGICAL HISTORY Hx Surgeries: No Hx Abdominal Aortic Aneurysm Repair: No Hx Amputation: No Hx Angiogram: No Hx Angioplasty: No Hx Appendectomy: No Hx Arteriovenous Shunt: No Hx Arthroscopy: No Hx Bile Duct Stent: No Hx Breast Biopsy: No Hx Cataract Extraction: No Hx Cardiac Catheterization: No Hx Carotid Endarterectomy: No Hx Section: No (unknown by , only with her 4 years) Hx Cholecystectomy: No Hx Coronary Artery Bypass Graft: No Hx Coronary Stent: No Hx Dilation and Curettage: No Hx Eye Surgery: No Hx Femoral-Popliteal Bypass Graft: No Hx Gastric Bypass Surgery: No Hx Herniorrhaphy: No Hx Hysterectomy: No Hx Joint Replacement: No Hx Kidney Transplant: No Hx Liver Transplant: No Hx Mastectomy: No Hx Musculoskeletal Surgery: No Hx Open Heart Surgery: No Hx Open Reduction Internal Fixation: No Hx Orthopedic Surgery: No Hx Parathyroidectomy: No Hx Penile Implant: No Hx Pulmonary Surgery: No Hx Splenectomy: No Hx Thyroidectomy: No Hx Tonsillectomy: No Hx Tubal Ligation: No Hx Valve Replacement: No Hx Vascular Surgery: No Hx Vascular Access Device: No - ANESTHESIA Hx Anesthesia: No Hx Anesthesia Reactions: No Hx Malignant Hyperthermia: No Has any member of the family had a problem w/ anesthesia?: No Meds Allergies/Adverse Reactions: Allergies Allergy/AdvReac Type Severity Reaction Status Date / Time No Known Allergies Allergy Verified 01/20/17 18:08 - Medications Medications: Current Medications Acetaminophen (Tylenol 325mg Tab) 650 mg PO Q4 PRN PRN Reason: feve 101 and above Last Admin: 02/02/18 08:40 Dose: 650 mg Baclofen (Lioresal) 10 mg PO Q12 PRN PRN Reason: Muscle spasm Cholecalciferol (Vitamin D) 5,000 intlu PO DAILY [facility] Last Admin: 02/02/18 09:41 Dose: 5,000 intlu Enalapril Maleate (Vasotec) 10 mg PO DAILY [facility] Last Admin: 02/02/18 09:42 Dose: 10 mg Folic Acid (Folic Acid) 1 mg PO DAILY [facility] Last Admin: 02/02/18 09:42 Dose: 1 mg Home Med (Diflunisal) 500 mg PO Q12 [facility] Last Admin: 02/02/18 09:40 Dose: 500 mg Piperacillin Sod/Tazobactam (Sod 3.375 gm/ Sodium Chloride) 100 mls @ 100 mls/ hr IVPB Q8 [facility] PRN Reason: Protocol Last Admin: 02/02/18 09:43 Dose: 100 mls/hr Metronidazole (Flagyl 500mg/100ml Ns) 100 mls @ 100 mls/hr IVPB Q8 [facility] PRN Reason: Protocol Methotrexate (Methotrexate) 12.5 mg PO QWK [facility] PRN Reason: Protocol Ondansetron HCl (Zofran Odt) 4 mg PO Q6 PRN PRN Reason: Nausea/Vomiting Last Admin: 01/29/18 04:04 Dose: 4 mg Prednisone (Prednisone Tab) 5 mg PO DAILY [facility] Last Admin: 02/02/18 09:42 Dose: 5 mg Physical Exam - Constitutional Appears: No Acute Distress - Head Exam Head Exam: ATRAUMATIC - Eye Exam Eye Exam: EOMI, PERRL - ENT Exam ENT Exam: Normal Oropharynx - Neck Exam Neck exam: Positive for: Full Rom - Respiratory Exam Respiratory Exam: Clear to Auscultation Bilateral, NORMAL BREATHING PATTERN - Cardiovascular Exam Cardiovascular Exam: RRR, +S1, +S2 - GI/Abdominal Exam GI & Abdominal Exam: Normal Bowel Sounds, Soft Additional comments: NT, ND NO CVA tenderness - Extremities Exam Additional comments: No edema B/L LE - Neurological Exam Neurological exam: Alert, Oriented x3 Results - Vital Signs Recent Vital Signs: Last Vital Signs Temp 101.8 F H 02/02/18 08:40 Pulse 80 02/02/18 08:11 Resp 20 02/02/18 08:11 BP 150/100 H 02/02/18 08:11 Pulse Ox 97 02/02/18 08:11 - Labs Result Diagrams: 02/02/18 09:57 02/02/18 09:57 Labs: Laboratory Results - last 72 hr 01/29/18 01/31/18 01/31/18 20:00 07:06 07:06 WBC 9.4 RBC 3.54 L Hgb 10.8 L Hct 32.5 L MCV 91.6 MCH 30.6 MCHC 33.4 RDW 16.0 H Plt Count 146 Sodium 149 H Potassium 3.5 L Chloride 114 H Carbon Dioxide 19 L Anion Gap 20 BUN 14 Creatinine 0.7 Est GFR ( Amer) > 60 Est GFR (Non-Af Amer) > 60 Random Glucose 97 Calcium 8.7 Total Bilirubin 0.7 AST 24 ALT 37 Alkaline Phosphatase 59 Total Protein 6.5 Albumin 2.7 L Globulin 3.8 Albumin/Globulin Ratio 0.7 L C. difficile Ag & Toxin Negative 02/01/18 02/02/18 02/02/18 04:15 09:57 09:57 WBC 6.3 RBC 3.69 L Hgb 11.2 L Hct 34.0 MCV 91.9 MCH 30.4 MCHC 33.1 RDW 15.5 H Plt Count 180 Sodium 145 143 Potassium 3.6 2.9 L Chloride 113 H 108 H Carbon Dioxide 18 L 20 L Anion Gap 18 18 BUN 11 12 Creatinine 0.6 L 0.6 L Est GFR ( Amer) > 60 > 60 Est GFR (Non-Af Amer) > 60 > 60 Random Glucose 93 123 H Calcium 8.6 8.2 L Total Bilirubin 0.5 AST 14 D ALT 27 Alkaline Phosphatase 53 Total Protein 6.4 Albumin 2.8 L Globulin 3.6 Albumin/Globulin Ratio 0.8 L C. difficile Ag & Toxin Microbiology 01/28/18 13:20 Blood-Venous Blood Culture - Final NO GROWTH AFTER 5 DAYS 01/28/18 13:20 Blood-Venous Gram Stain - Final TEST NOT PERFORMED 01/31/18 07:06 Blood-Venous Blood Culture - Preliminary NO GROWTH AFTER 48 HOURS 01/29/18 16:41 Stool Ova and Parasite Concentrate Exam - Final 01/29/18 16:41 Stool Stool Culture - Final NO SALMONELLA, SHIGELLA OR CAMPYLOBACTER ISOLATED. 01/28/18 13:05 Blood-Venous Blood Culture - Final Escherichia Coli 01/28/18 13:05 Blood-Venous Gram Stain - Final 01/28/18 13:01 Urine,Clean Catch Urine Culture - Final Escherichia Coli Accession No. : [id number] Patient Name / ID : GALINA GODWIN D / [id number] Exam Date : 01/29/2018 13:47:01 ( Approved ) Study Comment : Sex / Age : F / 47Y Creator : Madeline Franco MD Dictator : Madeline Franco MD Drapery Worker : [employer] Flap Trimmer : Madeline Franco MD Approver2 : Report Date : 01/29/2018 14:43:17 My Comment : PROCEDURE: CT Abdomen and Pelvis with contrast HISTORY: Nausea, abdominal pain, vomiting and diarrhea COMPARISON: None. TECHNIQUE: CT scan of the abdomen and pelvis was performed after administration of intravenous contrast. Oral contrast was not administered. Coronal and sagittal reformatted images were obtained. Contrast dose: 95 mL Omnipaque 300 Radiation dose: Total exam DLP = 466.46 mGy-cm. This CT exam was performed using one or more of the following dose reduction techniques: Automated exposure control, adjustment of the mA and/or kV according to patient size, and/or use of iterative reconstruction technique. FINDINGS: LOWER THORAX: The lung bases are clear. There is linear atelectasis/scarring in the lingula P LIVER: There is mild hepatomegaly and diffuse fatty infiltration in the liver. No gross lesion or ductal dilatation. GALLBLADDER AND BILE DUCTS: There are no calcified gallstones. PANCREAS: Normal in size with homogeneous enhancement. No gross lesion or ductal dilatation. SPLEEN: The spleen is normal in size. There is a 2.0 cm lobular fluid density lesion in the lower pole of the spleen. ADRENALS: Normal in size without discrete nodule. KIDNEYS AND URETERS: Normal in size with homogeneous enhancement. No hydronephrosis. No solid mass. VASCULATURE: No aortic aneurysm. BOWEL: There are fluid filled normal caliber small bowel loops. There is also fluid in normal caliber colon. No bowel dilatation or obstruction. APPENDIX: Normal appendix. PERITONEUM: No free fluid. No free air. LYMPH NODES: No enlarged lymph nodes. BLADDER: The urinary bladder is partially decompressed and there is apparent moderate mural thickening of the bladder wall with minimal perivesical fat stranding. REPRODUCTIVE: The uterus is normal in size. BONES: No acute fracture. Diffuse bone demineralization. OTHER FINDINGS: None. IMPRESSION: 1. Fluid-filled normal caliber small bowel loops and colon without evidence for bowel dilatation or obstruction. Findings are most compatible with nonspecific infectious/inflammatory enteritis and colitis. 2. 2.0 cm simple cyst in the lower pole of the spleen. Accession No. : [id number] Patient Name / ID : GALINA GODWIN D / [id number] Exam Date : 02/02/2018 08:39:45 ( Approved ) Study Comment : Sex / Age : F / 47Y Creator : Angel Finnegan MD Dictator : Angel Finnegan MD Drapery Worker : [employer] Flap Trimmer : Angel Finnegan MD Approver2 : Report Date : 02/02/2018 09:13:05 My Comment : HISTORY: fever COMPARISON: Chest radiographs 01/28/2018. TECHNIQUE: Chest PA and lateral FINDINGS: LUNGS: No active pulmonary disease. PLEURA: No significant pleural effusion identified. No pneumothorax apparent. CARDIOVASCULAR: Cardiac silhouette appears prominent in this PA frontal view suspicious for at least borderline cardiomegaly with no definite pulmonary derangement appreciable. OSSEOUS STRUCTURES: No significant abnormalities. VISUALIZED UPPER ABDOMEN: Normal. OTHER FINDINGS: None. IMPRESSION: Borderline cardiomegaly. No acute infiltrate pleural effusion or pneumothorax. No definite pulmonary vascular derangement identified. Assessment & Plan (1) UTI (lower urinary tract infection) Status: Acute (2) Fever Status: Acute (3) Gastroenteritis Status: Acute - Assessment and Plan (Free Text) Assessment: A/P- 47 year old female with SLE/RA admitted with gastroenteritis symptoms. found to have ecoli UTI and e.coli bacteremia. leukocytosis has resolved since admission, however, still spiking temps depsite being on zosyn and flagyl as per primary doc. cxr- negative as per report. TTE- no vegetations as per report. CT abd report noted. blood cx- e.coli pansensitive 1 out of 2 bottles from 01/28/2018 urine cx- e.coli pansensitive repeat blood cx- neg x from 01/31/2018 stool c.diff- neg x 2 stool cx- neg stool O and P -negative plan- advise to d/c zosyn ( high STEPH). start IV meropnem to treat the e.coli bacteremia. continue with IV flagyl for enteritis/colitis. check 2 more blood cx. check urinalysis. All above d/a patient and she verbalizes full understanding of all above and agrees with above plan of care. Thank you for allowing me to take part in the care of this patient.
[2018-02-02 10:14] LABS: HEMOGLOBIN 11.2 g/dL (12.0-16.0); MEAN CELL VOLUME 91.9 fl (81.0-99.0); MEAN CORPUSCULAR HEMOGLOBIN 30.4 pg (27.0-31.0); MEAN CORPUSCULAR HGB CONC 33.1 g/dL (33.0-37.0); RBC 3.69 Mil/uL (3.80-5.20); RED CELL DISTRIBUTION WIDTH 15.5 % (11.5-14.5); WHITE BLOOD COUNT 6.3 K/uL (4.8-10.8)
[2018-02-02 10:27] LABS: ALB/GLOB RATIO 0.8 (1.0-2.1); ALBUMIN 2.8 g/dL (3.5-5.0); ALT/SGPT 27 U/L (9-52); AST/SGOT 14 U/L (14-36); BLOOD UREA NITROGEN 12 mg/dl (7-17); CALCIUM 8.2 mg/dL (8.4-10.2); GFR AFRICAN-AMERICAN > 60; GFR NON-AFRICAN AMERICAN > 60
[2018-02-02] MEDS: Meropenem 1 GM in Sodium Chloride 0.9% 100 ML IVPB SCH ×2 (10:27→17:10)
[2018-02-02] MEDS ORDERED: Potassium Chloride 20 mEq ER Tab PO ONE (11:10)
[2018-02-02] MEDS: metroNIDAZOLE 500mg/100ml NS 100 ML IVPB SCH ×2 (11:18→17:11)
[2018-02-02] MEDS: Enoxaparin 40 mg Syringe SC SCH (12:28)
[2018-02-02] MEDS: Benzocaine/Menthol (Cepacol) Lozenge PO PRN (12:28)
--- NOTE | 2018-02-02 13:53 | CARD ---
APPROVED REPORT EXAM: Two-dimensional and M-mode echocardiogram with Doppler and color Doppler. Other Information Quality : AverageRhythm : NSR INDICATION Infection: 2D DIMENSIONS IVSd0.95 (0.7-1.1cm)LVDd4.39 (3.9-5.9cm) LVOT Diameter2.07 (1.8-2.4cm)PWd0.96 (0.7-1.1cm) IVSs1.26 (0.8-1.2cm)LVDs3.29 (2.5-4.0cm) FS (%) 25.0 %PWs1.18 (0.8-1.2cm) M-Mode DIMENSIONS Left Atrium (MM)3.38 (2.5-4.0cm)IVSd1.18 (0.7-1.1cm) Aortic Root3.00 (2.2-3.7cm)LVDd5.03 (4.0-5.6cm) Aortic Cusp Exc.1.97 (1.5-2.0cm)PWd0.79 (0.7-1.1cm) IVSs1.47 cmFS (%) 30 % LVDs3.50 (2.0-3.8cm)PWs1.47 cm Mitral Valve E/A ratio0.0 TDI E/Lateral E'0.0E/Medial E'0.0 Pulmonary Valve PV Peak Bkxyusfh87.8cm/s LEFT VENTRICLE The left ventricle is normal size. There is normal left ventricular wall thickness. Left ventricle systolic function is normal. The Ejection Fraction is 60-65%. There is normal LV segmental wall motion. Transmitral Doppler flow pattern is Grade I-abnormal relaxation pattern. RIGHT VENTRICLE The right ventricle is normal size. There is normal right ventricular wall thickness. The right ventricular systolic function is normal. ATRIA The left atrium size is normal. The right atrium size is normal. AORTIC VALVE The aortic valve is normal in structure. No aortic regurgitation is present. There is no aortic valvular stenosis. There is no aortic valvular vegetation. MITRAL VALVE The mitral valve is normal in structure. There is no evidence of mitral valve prolapse. There is no mitral valve stenosis. There is no mitral valve regurgitation noted. TRICUSPID VALVE The tricuspid valve is normal in structure. There is no tricuspid valve regurgitation noted. There is no tricuspid valve vegetation. PULMONIC VALVE The pulmonary valve is normal in structure. There is no pulmonic valvular regurgitation. GREAT VESSELS The aortic root is normal in size. The IVC is normal in size and collapses >50% with inspiration. PERICARDIAL EFFUSION The pericardium appears normal. <Conclusion> The left ventricle is normal size. There is normal left ventricular wall thickness. There is normal LV segmental wall motion. Left ventricle systolic function is normal. The Ejection Fraction is 60-65%. Transmitral Doppler flow pattern is Grade I-abnormal relaxation pattern. No vegetations seen on this TTE.
[2018-02-02] MEDS: Pantoprazole 40 mg EC Tab PO SCH (17:11)
--- NOTE | 2018-02-02 18:53 | CP.PCM.PN ---
Subjective - Date & Time of Evaluation Date of Evaluation: 02/02/18 Time of Evaluation: 14:15 - Subjective Subjective: Had loose BM today. Has low grade temp. Has nausea on and off. No vomiting, chills, cp or sob Objective - Vital Signs/Intake and Output Vital Signs (last 24 hours): Temp Pulse Resp BP Pulse Ox 97.8 F 86 16 118/83 96 02/02/18 16:17 02/02/18 16:17 02/02/18 16:17 02/02/18 16:17 02/02/18 16:17 - Medications Medications: Current Medications Acetaminophen (Tylenol 325mg Tab) 650 mg PO Q4 PRN PRN Reason: feve 101 and above Last Admin: 02/02/18 08:40 Dose: 650 mg Baclofen (Lioresal) 10 mg PO Q12 PRN PRN Reason: Muscle spasm Benzocaine/Menthol (Cepacol Sore Throat) 1 martin PO Q2 PRN PRN Reason: Sore Throat Last Admin: 02/02/18 12:28 Dose: 1 martin Cholecalciferol (Vitamin D) 5,000 intlu PO DAILY [facility] Last Admin: 02/02/18 09:41 Dose: 5,000 intlu Enalapril Maleate (Vasotec) 10 mg PO DAILY [facility] Last Admin: 02/02/18 09:42 Dose: 10 mg Enoxaparin Sodium (Lovenox) 40 mg SC DAILY [facility] PRN Reason: Protocol Last Admin: 02/02/18 12:28 Dose: 40 mg Folic Acid (Folic Acid) 1 mg PO DAILY [facility] Last Admin: 02/02/18 09:42 Dose: 1 mg Home Med (Diflunisal) 500 mg PO Q12 [facility] Last Admin: 02/02/18 09:40 Dose: 500 mg Metronidazole (Flagyl 500mg/100ml Ns) 100 mls @ 100 mls/hr IVPB Q8 [facility] PRN Reason: Protocol Last Admin: 02/02/18 17:11 Dose: 100 mls/hr Meropenem 1 gm/ Sodium (Chloride) 100 mls @ 100 mls/hr IVPB Q8 [facility] PRN Reason: Protocol Last Admin: 02/02/18 17:10 Dose: 100 mls/hr Methotrexate (Methotrexate) 12.5 mg PO QWK [facility] PRN Reason: Protocol Ondansetron HCl (Zofran Odt) 4 mg PO Q6 PRN PRN Reason: Nausea/Vomiting Last Admin: 02/02/18 17:11 Dose: 4 mg Pantoprazole Sodium (Protonix Ec Tab) 40 mg PO DAILY [facility] Last Admin: 02/02/18 17:11 Dose: 40 mg Prednisone (Prednisone Tab) 5 mg PO DAILY [facility] Last Admin: 02/02/18 09:42 Dose: 5 mg - Labs Labs: 02/02/18 09:57 02/02/18 09:57 PT 13.9 Seconds (9.8-13.1) H 01/28/18 13:05 INR 1.3 (0.9-1.2) H 01/28/18 13:05 APTT 38.1 Seconds (25.6-37.1) H 01/28/18 13:05 - Constitutional Appears: Well, No Acute Distress - Head Exam Head Exam: ATRAUMATIC, NORMOCEPHALIC - Respiratory Exam Respiratory Exam: Clear to Ausculation Bilateral, NORMAL BREATHING PATTERN - Cardiovascular Exam Cardiovascular Exam: REGULAR RHYTHM, +S1, +S2 - GI/Abdominal Exam GI & Abdominal Exam: Soft, Normal Bowel Sounds - Neurological Exam Neurological Exam: Alert, Normal Gait, Oriented x3 - Psychiatric Exam Psychiatric exam: Normal Affect, Normal Mood - Skin Skin Exam: Normal Color, Warm Assessment and Plan (1) Sepsis Assessment & Plan: UTI and enterocolitis E coli positive in urine and blood cultures Continue antibiotics ID consult Echo C-diff negative Stool cultures negative GI consult appreciated DVT/GI prophylaxis Status: Acute (2) Hypokalemia Assessment & Plan: on potassium supplement monitor Status: Acute (3) Rheumatoid arthritis Assessment & Plan: on medications Status: Chronic (4) SLE (systemic lupus erythematosus) Assessment & Plan: on medications Status: Chronic
[2018-02-03] MEDS: Meropenem 1 GM in Sodium Chloride 0.9% 100 ML IVPB SCH ×3 (00:14→17:33)
[2018-02-03] MEDS: metroNIDAZOLE 500mg/100ml NS 100 ML IVPB SCH ×3 (01:14→17:32)
[2018-02-03] MEDS: DIFLUNISAL 500 MG PO SCH ×2 (09:15→21:26)
[2018-02-03] MEDS: Cholecalciferol 1,000 INTLU TAB PO SCH (09:16)
[2018-02-03] MEDS: Pantoprazole 40 mg EC Tab PO SCH (09:19)
[2018-02-03] MEDS: Enoxaparin 40 mg Syringe SC SCH (09:20)
[2018-02-03] MEDS: Benzocaine/Menthol (Cepacol) Lozenge PO PRN (09:22)
--- NOTE | 2018-02-03 21:57 | CP.PCM.PN ---
Subjective - Date & Time of Evaluation Date of Evaluation: 02/03/18 Time of Evaluation: 16:15 - Subjective Subjective: Feels better, diarrhea improved Occasional nausea, no vomiting, fever or chills Objective - Vital Signs/Intake and Output Vital Signs (last 24 hours): Temp Pulse Resp BP Pulse Ox 98.8 F 74 17 145/94 H 97 02/03/18 19:32 02/03/18 19:32 02/03/18 19:32 02/03/18 19:32 02/03/18 19:32 - Medications Medications: Current Medications Acetaminophen (Tylenol 325mg Tab) 650 mg PO Q4 PRN PRN Reason: feve 101 and above Last Admin: 02/02/18 08:40 Dose: 650 mg Baclofen (Lioresal) 10 mg PO Q12 PRN PRN Reason: Muscle spasm Benzocaine/Menthol (Cepacol Sore Throat) 1 martin PO Q2 PRN PRN Reason: Sore Throat Last Admin: 02/03/18 09:22 Dose: 1 martin Cholecalciferol (Vitamin D) 5,000 intlu PO DAILY [facility] Last Admin: 02/03/18 09:16 Dose: 5,000 intlu Enalapril Maleate (Vasotec) 10 mg PO DAILY [facility] Last Admin: 02/03/18 09:19 Dose: 10 mg Enoxaparin Sodium (Lovenox) 40 mg SC DAILY [facility] PRN Reason: Protocol Last Admin: 02/03/18 09:20 Dose: Not Given Folic Acid (Folic Acid) 1 mg PO DAILY [facility] Last Admin: 02/03/18 09:18 Dose: 1 mg Home Med (Diflunisal) 500 mg PO Q12 [facility] Last Admin: 02/03/18 21:26 Dose: 500 mg Metronidazole (Flagyl 500mg/100ml Ns) 100 mls @ 100 mls/hr IVPB Q8 [facility] PRN Reason: Protocol Last Admin: 02/03/18 17:32 Dose: 100 mls/hr Meropenem 1 gm/ Sodium (Chloride) 100 mls @ 100 mls/hr IVPB Q8 [facility] PRN Reason: Protocol Last Admin: 02/03/18 17:33 Dose: 100 mls/hr Methotrexate (Methotrexate) 12.5 mg PO QWK [facility] PRN Reason: Protocol Last Admin: 02/03/18 17:33 Dose: 12.5 mg Ondansetron HCl (Zofran Odt) 4 mg PO Q6 PRN PRN Reason: Nausea/Vomiting Last Admin: 02/02/18 17:11 Dose: 4 mg Pantoprazole Sodium (Protonix Ec Tab) 40 mg PO DAILY [facility] Last Admin: 02/03/18 09:19 Dose: 40 mg Prednisone (Prednisone Tab) 5 mg PO DAILY [facility] Last Admin: 02/03/18 09:17 Dose: 5 mg - Labs Labs: 02/02/18 09:57 02/02/18 09:57 PT 13.9 Seconds (9.8-13.1) H 01/28/18 13:05 INR 1.3 (0.9-1.2) H 01/28/18 13:05 APTT 38.1 Seconds (25.6-37.1) H 01/28/18 13:05 - Constitutional Appears: Well, No Acute Distress - Head Exam Head Exam: ATRAUMATIC, NORMOCEPHALIC - Respiratory Exam Respiratory Exam: Clear to Ausculation Bilateral, NORMAL BREATHING PATTERN - Cardiovascular Exam Cardiovascular Exam: REGULAR RHYTHM, +S1, +S2 - GI/Abdominal Exam GI & Abdominal Exam: Soft, Normal Bowel Sounds - Neurological Exam Neurological Exam: Alert, Normal Gait, Oriented x3 - Psychiatric Exam Psychiatric exam: Normal Affect, Normal Mood - Skin Skin Exam: Normal Color, Warm Assessment and Plan (1) Sepsis Assessment & Plan: UTI and enterocolitis E coli positive in urine and blood cultures Continue antibiotics per ID ID consult appreciated F/u Echo IVF C-diff negative Stool cultures negative GI consult appreciated DVT/GI prophylaxis Status: Acute (2) Hypokalemia Assessment & Plan: on potassium supplement monitor electrolytes Status: Acute (3) Rheumatoid arthritis Assessment & Plan: on medications Status: Chronic (4) SLE (systemic lupus erythematosus) Assessment & Plan: on medications Status: Chronic
[2018-02-04] MEDS: Meropenem 1 GM in Sodium Chloride 0.9% 100 ML IVPB SCH ×3 (00:57→18:08)
[2018-02-04] MEDS: metroNIDAZOLE 500mg/100ml NS 100 ML IVPB SCH ×3 (00:58→17:04)
[2018-02-04] MEDS: DIFLUNISAL 500 MG PO SCH ×2 (08:50→21:00)
[2018-02-04] MEDS: Enoxaparin 40 mg Syringe SC SCH (08:51)
[2018-02-04] MEDS: Pantoprazole 40 mg EC Tab PO SCH (08:52)
[2018-02-04] MEDS: Cholecalciferol 1,000 INTLU TAB PO SCH (08:53)
--- NOTE | 2018-02-04 10:33 | CP.PCM.PN ---
Subjective - Date & Time of Evaluation Date of Evaluation: 02/04/18 Time of Evaluation: 13:00 - Subjective Subjective: ID Note- Pt. was seen and examined today. denies any complaints. has remained afebrile. Objective - Vital Signs/Intake and Output Vital Signs (last 24 hours): Temp Pulse Resp BP Pulse Ox 99 F 76 18 151/96 H 98 02/04/18 07:49 02/04/18 07:49 02/04/18 07:49 02/04/18 07:49 02/04/18 07:49 - Medications Medications: Current Medications Acetaminophen (Tylenol 325mg Tab) 650 mg PO Q4 PRN PRN Reason: feve 101 and above Last Admin: 02/02/18 08:40 Dose: 650 mg Baclofen (Lioresal) 10 mg PO Q12 PRN PRN Reason: Muscle spasm Benzocaine/Menthol (Cepacol Sore Throat) 1 martin PO Q2 PRN PRN Reason: Sore Throat Last Admin: 02/03/18 09:22 Dose: 1 martin Cholecalciferol (Vitamin D) 5,000 intlu PO DAILY [facility] Last Admin: 02/04/18 08:53 Dose: 5,000 intlu Enalapril Maleate (Vasotec) 10 mg PO DAILY [facility] Last Admin: 02/04/18 08:52 Dose: 10 mg Enoxaparin Sodium (Lovenox) 40 mg SC DAILY [facility] PRN Reason: Protocol Last Admin: 02/04/18 08:51 Dose: Not Given Folic Acid (Folic Acid) 1 mg PO DAILY [facility] Last Admin: 02/04/18 08:50 Dose: 1 mg Home Med (Diflunisal) 500 mg PO Q12 [facility] Last Admin: 02/04/18 08:50 Dose: 500 mg Metronidazole (Flagyl 500mg/100ml Ns) 100 mls @ 100 mls/hr IVPB Q8 [facility] PRN Reason: Protocol Last Admin: 02/04/18 08:58 Dose: 100 mls/hr Meropenem 1 gm/ Sodium (Chloride) 100 mls @ 100 mls/hr IVPB Q8 [facility] PRN Reason: Protocol Last Admin: 02/04/18 00:57 Dose: 100 mls/hr Methotrexate (Methotrexate) 12.5 mg PO QWK [facility] PRN Reason: Protocol Last Admin: 02/03/18 17:33 Dose: 12.5 mg Ondansetron HCl (Zofran Odt) 4 mg PO Q6 PRN PRN Reason: Nausea/Vomiting Last Admin: 02/02/18 17:11 Dose: 4 mg Pantoprazole Sodium (Protonix Ec Tab) 40 mg PO DAILY [facility] Last Admin: 02/04/18 08:52 Dose: 40 mg Prednisone (Prednisone Tab) 5 mg PO DAILY [facility] Last Admin: 02/04/18 08:52 Dose: 5 mg - Labs Labs: - Additional Findings Additional findings: - Constitutional Appears: No Acute Distress - Head Exam Head Exam: ATRAUMATIC - Eye Exam Eye Exam: EOMI, PERRL - ENT Exam ENT Exam: Normal Oropharynx - Neck Exam Neck exam: Positive for: Full Rom - Respiratory Exam Respiratory Exam: Clear to Auscultation Bilateral, NORMAL BREATHING PATTERN - Cardiovascular Exam Cardiovascular Exam: RRR, +S1, +S2 - GI/Abdominal Exam GI & Abdominal Exam: Normal Bowel Sounds, Soft Additional comments: NT, ND NO CVA tenderness - Extremities Exam Additional comments: No edema B/L LE - Neurological Exam Neurological exam: Alert, Oriented x 3 Laboratory Results - last 72 hr 02/02/18 02/02/18 02/04/18 09:57 09:57 05:30 WBC 6.3 RBC 3.69 L Hgb 11.2 L Hct 34.0 MCV 91.9 MCH 30.4 MCHC 33.1 RDW 15.5 H Plt Count 180 Sodium 143 Potassium 2.9 L 3.0 L Chloride 108 H Carbon Dioxide 20 L Anion Gap 18 BUN 12 Creatinine 0.6 L Est GFR ( Amer) > 60 Est GFR (Non-Af Amer) > 60 Random Glucose 123 H Calcium 8.2 L Total Bilirubin 0.5 AST 14 D ALT 27 Alkaline Phosphatase 53 Total Protein 6.4 Albumin 2.8 L Globulin 3.6 Albumin/Globulin Ratio 0.8 L Urine Color Urine Clarity Urine pH Ur Specific [place] Urine Protein Urine Glucose (UA) Urine Ketones Urine Blood Urine Nitrate Urine Bilirubin Urine Urobilinogen Ur Leukocyte Esterase Urine RBC (Auto) Urine Microscopic WBC Ur Squamous Epith Cells Urine Bacteria Urine Yeast (Budding) 02/04/18 15:05 WBC RBC Hgb Hct MCV MCH MCHC RDW Plt Count Sodium Potassium Chloride Carbon Dioxide Anion Gap BUN Creatinine Est GFR ( Amer) Est GFR (Non-Af Amer) Random Glucose Calcium Total Bilirubin AST ALT Alkaline Phosphatase Total Protein Albumin Globulin Albumin/Globulin Ratio Urine Color Yellow Urine Clarity Clear Urine pH 6.0 Ur Specific [place] < 1.005 Urine Protein Negative Urine Glucose (UA) Negative Urine Ketones Negative Urine Blood Trace-intact Urine Nitrate Negative Urine Bilirubin Negative Urine Urobilinogen 0.2 Ur Leukocyte Esterase Moderate Urine RBC (Auto) 3 Urine Microscopic WBC 10 H Ur Squamous Epith Cells 5 Urine Bacteria Small Urine Yeast (Budding) Few H Microbiology 02/02/18 09:57 Blood Blood Culture - Preliminary NO GROWTH AFTER 48 HOURS 02/02/18 21:46 Urine,Clean Catch Urine Culture - Final No Growth (<1,000 CFU/ML) 01/31/18 07:06 Blood-Venous Blood Culture - Preliminary NO GROWTH AFTER 4 DAYS 01/28/18 13:20 Blood-Venous Blood Culture - Final NO GROWTH AFTER 5 DAYS 01/28/18 13:20 Blood-Venous Gram Stain - Final TEST NOT PERFORMED 01/29/18 16:41 Stool Ova and Parasite Concentrate Exam - Final 01/29/18 16:41 Stool Stool Culture - Final NO SALMONELLA, SHIGELLA OR CAMPYLOBACTER ISOLATED. 01/28/18 13:05 Blood-Venous Blood Culture - Final Escherichia Coli 01/28/18 13:05 Blood-Venous Gram Stain - Final 01/28/18 13:01 Urine,Clean Catch Urine Culture - Final Escherichia Coli Assessment and Plan (1) UTI (lower urinary tract infection) Status: Acute (2) Fever Status: Acute (3) Gastroenteritis Status: Acute - Assessment and Plan (Free Text) Assessment: A/P- 47 year old female with SLE/RA admitted with gastroenteritis symptoms. found to have ecoli UTI and e.coli bacteremia. leukocytosis has resolved afebrile past 2 days cxr- negative as per report. TTE- no vegetations as per report. CT abd report noted. blood cx- e.coli pansensitive 1 out of 2 bottles from 01/28/2018 urine cx- e.coli pansensitive repeat blood cx- neg x 2 from 01/31/2018 and 02/02 repeat urine cx- negative stool c.diff- neg x 2 stool cx- neg stool O and P -negative plan-has been on IV meropnem for past 3 days to treat the e.coli bacteremia and UTi and prior to that was on IV zosyn for 4 days as per primary doc. can be d/c on IV antibiotics. advise place picc line and can be d/c on Iv ertapenem 1 gram iV daily for another 7 days to complete total of 14 days of IV abx for E.coli bacteremia. pt. to have f/u blood cx as outpatient and to be f/u by her PMD for this. All above d/a patient and she verbalizes full understanding of all above and agrees with above plan of care. all above also d/w .
[2018-02-04] MEDS ORDERED: Potassium Chloride 20 mEq ER Tab PO SCH (11:30)
[2018-02-04] MEDS: Potassium Chloride 20 mEq ER Tab PO SCH ×2 (13:42→17:11)
--- NOTE | 2018-02-04 13:46 | CP.PCM.PCO ---
Assessment & Plan - Assessment and Plan (Free Text) Assessment: Plan discussed with ID, patient needs total of 14 days iv antibiotics for Ecoli Bacteremia. Patient will need 8 more days iv merrem, picc line to be placed
[2018-02-04 15:47] LABS: URINE BILIRUBIN NEGATIVE (NEGATIVE); URINE CLARITY Clear (Clear); URINE COLOR YELLOW (YELLOW); URINE GLUCOSE (UA) NEGATIVE (Normal)
[2018-02-04 15:48] LABS: URINE BLOOD TRACE-INTACT (NEGATIVE); URINE LEUKOCYTE ESTERASE MODERATE Leu/uL (Negative); URINE PROTEIN NEGATIVE (NEGATIVE); URINE UROBILINOGEN 0.2 mg/dL (0.2-1.0)
[2018-02-04 15:49] LABS: SQUAMOUS EPITHIAL 5 /hpf (0-5)
[2018-02-04 15:51] LABS: URINE BACTERIA SMALL (<OCC)
--- NOTE | 2018-02-04 21:49 | CP.PCM.PN ---
Subjective - Date & Time of Evaluation Date of Evaluation: 02/04/18 Time of Evaluation: 11:00 - Subjective Subjective: Feels better, no more diarrhea. Denies N/V. Has been afebrile Objective - Vital Signs/Intake and Output Vital Signs (last 24 hours): Temp Pulse Resp BP Pulse Ox 98.6 F 77 18 158/97 H 97 02/04/18 19:56 02/04/18 20:40 02/04/18 19:56 02/04/18 19:56 02/04/18 19:56 Intake and Output: 02/04/18 02/05/18 18:59 06:59 Intake Total 1600 Balance 1600 - Medications Medications: Current Medications Acetaminophen (Tylenol 325mg Tab) 650 mg PO Q4 PRN PRN Reason: feve 101 and above Last Admin: 02/02/18 08:40 Dose: 650 mg Baclofen (Lioresal) 10 mg PO Q12 PRN PRN Reason: Muscle spasm Benzocaine/Menthol (Cepacol Sore Throat) 1 martin PO Q2 PRN PRN Reason: Sore Throat Last Admin: 02/03/18 09:22 Dose: 1 martin Cholecalciferol (Vitamin D) 5,000 intlu PO DAILY [facility] Last Admin: 02/04/18 08:53 Dose: 5,000 intlu Enalapril Maleate (Vasotec) 10 mg PO DAILY [facility] Last Admin: 02/04/18 08:52 Dose: 10 mg Enoxaparin Sodium (Lovenox) 40 mg SC DAILY [facility] PRN Reason: Protocol Last Admin: 02/04/18 08:51 Dose: Not Given Folic Acid (Folic Acid) 1 mg PO DAILY [facility] Last Admin: 02/04/18 08:50 Dose: 1 mg Home Med (Diflunisal) 500 mg PO Q12 [facility] Last Admin: 02/04/18 08:50 Dose: 500 mg Metronidazole (Flagyl 500mg/100ml Ns) 100 mls @ 100 mls/hr IVPB Q8 [facility] PRN Reason: Protocol Last Admin: 02/04/18 17:04 Dose: 100 mls/hr Meropenem 1 gm/ Sodium (Chloride) 100 mls @ 100 mls/hr IVPB Q8 [facility] PRN Reason: Protocol Last Admin: 02/04/18 18:08 Dose: 100 mls/hr Methotrexate (Methotrexate) 12.5 mg PO QWK [facility] PRN Reason: Protocol Last Admin: 02/03/18 17:33 Dose: 12.5 mg Ondansetron HCl (Zofran Odt) 4 mg PO Q6 PRN PRN Reason: Nausea/Vomiting Last Admin: 02/02/18 17:11 Dose: 4 mg Pantoprazole Sodium (Protonix Ec Tab) 40 mg PO DAILY [facility] Last Admin: 02/04/18 08:52 Dose: 40 mg Potassium Chloride (K-Dur 20 Meq Er Tab) 20 meq PO BID [facility] Last Admin: 02/04/18 17:11 Dose: 20 meq Prednisone (Prednisone Tab) 5 mg PO DAILY [facility] Last Admin: 02/04/18 08:52 Dose: 5 mg - Labs Labs: 02/02/18 09:57 02/04/18 05:30 PT 13.9 Seconds (9.8-13.1) H 01/28/18 13:05 INR 1.3 (0.9-1.2) H 01/28/18 13:05 APTT 38.1 Seconds (25.6-37.1) H 01/28/18 13:05 - Constitutional Appears: Well, No Acute Distress - Head Exam Head Exam: ATRAUMATIC - Respiratory Exam Respiratory Exam: Clear to Ausculation Bilateral, NORMAL BREATHING PATTERN - Cardiovascular Exam Cardiovascular Exam: REGULAR RHYTHM, +S1, +S2 - GI/Abdominal Exam GI & Abdominal Exam: Soft, Normal Bowel Sounds - Neurological Exam Neurological Exam: Alert, Normal Gait, Oriented x3 - Psychiatric Exam Psychiatric exam: Normal Affect, Normal Mood - Skin Skin Exam: Normal Color, Warm Assessment and Plan (1) Sepsis Assessment & Plan: UTI and enterocolitis improved E coli UTI and bacteremia Continue antibiotics per ID ID consult appreciated Echo C-diff negative Stool cultures negative GI consult appreciated DVT/GI prophylaxis Status: Acute
[2018-02-05] MEDS: Meropenem 1 GM in Sodium Chloride 0.9% 100 ML IVPB SCH ×3 (00:31→17:03)
[2018-02-05] MEDS: metroNIDAZOLE 500mg/100ml NS 100 ML IVPB SCH ×3 (00:31→17:04)
[2018-02-05 07:25] LABS: BLOOD UREA NITROGEN 8 mg/dl (7-17); CALCIUM 8.5 mg/dL (8.4-10.2); GFR AFRICAN-AMERICAN > 60; GFR NON-AFRICAN AMERICAN > 60
[2018-02-05] MEDS: Potassium Chloride 20 mEq ER Tab PO SCH ×2 (08:43→17:02)
[2018-02-05] MEDS: Pantoprazole 40 mg EC Tab PO SCH (08:44)
[2018-02-05] MEDS: Cholecalciferol 1,000 INTLU TAB PO SCH (08:44)
[2018-02-05] MEDS ORDERED: Lidocaine Hydrochloride 1% 10 ML ONE (09:32)
--- NOTE | 2018-02-05 09:56 | PCM.SURG1 ---
Surgeon's Initial Post Op Note - Surgeon's Notes Surgeon: Patricio Ledezma MD Dragger Out: NONE Type of Anesthesia: Local Pre-Operative Diagnosis: Poor venous access Operative Findings: US showed a patent right basilic vein Post-Operative Diagnosis: Poor venous access Operation Performed: Single lumen picc 35 cm right basilic vein. Tip is in the SVC. Specimen/Specimens Removed: NONE Estimated Blood Loss: EBL {In ML}: 2 Blood Products Given: N/A Drains Used: No Drains Post-Op Condition: Fair Date of Surgery/Procedure: 02/05/18 Time of Surgery/Procedure: 09:50
[2018-02-05] MEDS: Enoxaparin 40 mg Syringe SC SCH (10:39)
[2018-02-05] MEDS: DIFLUNISAL 500 MG PO SCH (10:40)
--- NOTE | 2018-02-05 11:49 | CP.PCM.DIS ---
Provider - Provider Date of Admission: 01/28/18 14:43 Attending physician: Elia Calvin MD Diagnosis - Discharge Diagnosis (1) Sepsis Status: Acute (2) Hypokalemia Status: Acute (3) Rheumatoid arthritis Status: Chronic (4) SLE (systemic lupus erythematosus) Status: Chronic Hospital Course - Lab Results Lab Results: Micro Results 02/02/18 09:57 Blood Blood Culture - Preliminary NO GROWTH AFTER 3 DAYS 01/31/18 07:06 Blood-Venous Blood Culture - Final NO GROWTH AFTER 5 DAYS 01/31/18 07:06 Blood-Venous Gram Stain - Final TEST NOT PERFORMED 02/02/18 21:46 Urine,Clean Catch Urine Culture - Final No Growth (<1,000 CFU/ML) 01/28/18 13:20 Blood-Venous Blood Culture - Final NO GROWTH AFTER 5 DAYS 01/28/18 13:20 Blood-Venous Gram Stain - Final TEST NOT PERFORMED 01/29/18 16:41 Stool Ova and Parasite Concentrate Exam - Final 01/29/18 16:41 Stool Stool Culture - Final NO SALMONELLA, SHIGELLA OR CAMPYLOBACTER ISOLATED. 01/28/18 13:05 Blood-Venous Blood Culture - Final Escherichia Coli 01/28/18 13:05 Blood-Venous Gram Stain - Final 01/28/18 13:01 Urine,Clean Catch Urine Culture - Final Escherichia Coli Most Recent Lab Values WBC 6.3 K/uL (4.8-10.8) 02/02/18 09:57 RBC 3.69 Mil/uL (3.80-5.20) L 02/02/18 09:57 Hgb 11.2 g/dL (12.0-16.0) L 02/02/18 09:57 Hct 34.0 % (34.0-47.0) 02/02/18 09:57 MCV 91.9 fl (81.0-99.0) 02/02/18 09:57 MCH 30.4 pg (27.0-31.0) 02/02/18 09:57 MCHC 33.1 g/dL (33.0-37.0) 02/02/18 09:57 RDW 15.5 % (11.5-14.5) H 02/02/18 09:57 Plt Count 180 K/uL (130-400) 02/02/18 09:57 MPV 9.1 fl (7.2-11.7) 01/29/18 09:30 Neut % (Auto) 91.4 % (50.0-75.0) H 01/29/18 09:30 Lymph % (Auto) 4.6 % (20.0-40.0) L 01/29/18 09:30 Gem % (Auto) 3.9 % (0.0-10.0) 01/29/18 09:30 Eos % (Auto) 0.0 % (0.0-4.0) 01/29/18 09:30 Baso % (Auto) 0.1 % (0.0-2.0) 01/29/18 09:30 Neut # (Auto) 12.8 K/uL (1.8-7.0) H 01/29/18 09:30 Lymph # (Auto) 0.6 K/uL (1.0-4.3) L 01/29/18 09:30 Gem # (Auto) 0.5 K/uL (0.0-0.8) 01/29/18 09:30 Eos # (Auto) 0.0 K/uL (0.0-0.7) 01/29/18 09:30 Baso # (Auto) 0.0 K/uL (0.0-0.2) 01/29/18 09:30 Neutrophils % (Manual) 85 % (42-75) H 01/29/18 09:30 Lymphocytes % (Manual) 7 % (20-50) L 01/29/18 09:30 Monocytes % (Manual) 8 % (0-10) 01/29/18 09:30 Platelet Estimate Slightly decreased (NORMAL) L 01/29/18 09:30 Large Platelets Present 01/29/18 09:30 Anisocytosis (manual) Slight 01/29/18 09:30 Macrocytosis (manual) Slight 01/29/18 09:30 Tear Drop Cells Slight 01/29/18 09:30 Ovalocytes Slight 01/29/18 09:30 PT 13.9 Seconds (9.8-13.1) H 01/28/18 13:05 INR 1.3 (0.9-1.2) H 01/28/18 13:05 APTT 38.1 Seconds (25.6-37.1) H 01/28/18 13:05 pO2 41 mm/Hg (30-55) 01/28/18 17:25 VBG pH 7.36 (7.32-7.43) 01/28/18 17:25 VBG pCO2 32 mmHg (40-60) L 01/28/18 17:25 VBG HCO3 19.4 mmol/L 01/28/18 17:25 VBG Total CO2 19.1 mmol/L (22-28) L 01/28/18 17:25 VBG O2 Sat (Calc) 78.1 % (40-65) H 01/28/18 17:25 VBG Base Excess -6.3 mmol/L (0.0-2.0) L 01/28/18 17:25 VBG Potassium 2.4 mmol/L (3.6-5.2) L* 01/28/18 17:25 Sodium 138.0 mmol/L (132-148) 01/28/18 17:25 Chloride 108.0 mmol/L (98-107) H 01/28/18 17:25 Glucose 105 mg/dL (65-105) 01/28/18 17:25 Lactate 1.7 mmol/L (0.7-2.1) 01/28/18 17:25 FiO2 21.0 % 01/28/18 17:25 Crit Value Called To kiel Mahoney md 01/28/18 17:25 Crit Value Called By Dandre trinh 01/28/18 17:25 Crit Value Read Back Y 01/28/18 17:25 Blood Gas Notified Time 6366 01/28/18 17:25 Sodium 144 mmol/l (132-148) 02/05/18 05:56 Potassium 3.2 MMOL/L (3.6-5.0) L 02/05/18 05:56 Chloride 107 mmol/L (98-107) 02/05/18 05:56 Carbon Dioxide 23 mmol/L (22-30) 02/05/18 05:56 Anion Gap 17 (10-20) 02/05/18 05:56 BUN 8 mg/dl (7-17) 02/05/18 05:56 Creatinine 0.6 mg/dl (0.7-1.2) L 02/05/18 05:56 Est GFR ( Amer) > 60 02/05/18 05:56 Est GFR (Non-Af Amer) > 60 02/05/18 05:56 Random Glucose 88 mg/dL (65-105) 02/05/18 05:56 Calcium 8.5 mg/dL (8.4-10.2) 02/05/18 05:56 Phosphorus 2.9 mg/dl (2.5-4.5) 01/28/18 13:05 Magnesium 1.3 MG/DL (1.6-2.3) L 01/28/18 13:05 Total Bilirubin 0.5 mg/dl (0.2-1.3) 02/02/18 09:57 AST 14 U/L (14-36) D 02/02/18 09:57 ALT 27 U/L (9-52) 02/02/18 09:57 Alkaline Phosphatase 53 U/L (38-126) 02/02/18 09:57 Troponin I 0.0220 ng/mL (0.00-0.120) 01/28/18 13:05 Total Protein 6.4 G/DL (6.3-8.2) 02/02/18 09:57 Albumin 2.8 g/dL (3.5-5.0) L 02/02/18 09:57 Globulin 3.6 gm/dL (2.2-3.9) 02/02/18 09:57 Albumin/Globulin Ratio 0.8 (1.0-2.1) L 02/02/18 09:57 TSH 3rd Generation 1.29 mIU/ML (0.46-4.68) 01/29/18 09:30 Venous Blood Potassium 2.4 mmol/L (3.6-5.2) L* 01/28/18 17:25 Urine Color Yellow (YELLOW) 02/04/18 15:05 Urine Clarity Clear (Clear) 02/04/18 15:05 Urine pH 6.0 (5.0-8.0) 02/04/18 15:05 Ur Specific [place] < 1.005 (1.003-1.030) 02/04/18 15:05 Urine Protein Negative mg/dL (NEGATIVE) 02/04/18 15:05 Urine Glucose (UA) Negative mg/dL (Normal) 02/04/18 15:05 Urine Ketones Negative mg/dL (NEGATIVE) 02/04/18 15:05 Urine Blood Trace-intact (NEGATIVE) 02/04/18 15:05 Urine Nitrate Negative (NEGATIVE) 02/04/18 15:05 Urine Bilirubin Negative (NEGATIVE) 02/04/18 15:05 Urine Urobilinogen 0.2 mg/dL (0.2-1.0) 02/04/18 15:05 Ur Leukocyte Esterase Moderate [place]/uL (Negative) 02/04/18 15:05 Urine RBC (Auto) 3 /hpf (0-3) 02/04/18 15:05 Urine Microscopic WBC 10 /hpf (0-5) H 02/04/18 15:05 Ur Squamous Epith Cells 5 /hpf (0-5) 02/04/18 15:05 Urine Bacteria Small (<OCC) 02/04/18 15:05 Urine Yeast (Budding) Few /hpf (NEGATIVE) H 02/04/18 15:05 C. difficile Ag & Toxin Negative (NEGATIVE) 01/29/18 20:00 Influenza Typ A,B (EIA) Negative for flu a/b (NEGATIVE) 01/28/18 13:54 - Hospital Course Hospital Course: A 47 year old female who was admitted for sepsis secondary to E coli uti and bacteremia and for enterocolitis. The patient was treated with IV antibiotics and responded well to treatment. The patient's fever, diarrhea and other GI symptoms have resolved. The patient will require another week of IV antibiotics as per ID. A picc line was placed and the patient was transferred to TCU for completion of antibiotics treatment. Discharge Exam - Head Exam Head Exam: ATRAUMATIC, NORMOCEPHALIC - Respiratory Exam Respiratory Exam: Clear to PA & Lateral, NORMAL BREATHING PATTERN - Cardiovascular Exam Cardiovascular Exam: REGULAR RHYTHM, +S1, +S2 - GI/Abdominal Exam GI & Abdominal Exam: Normal Bowel Sounds, Soft - Neurological Exam Neurological exam: Alert, CN II-XII Intact, Oriented x3 - Psychiatric Exam Psychiatric exam: Normal Affect, Normal Mood - Skin Skin Exam: Normal Color, Warm Discharge Plan - Discharge Medications Prescriptions: Ertapenem 1gm in NS 50ml [Invanz] 1 gm IV DAILY #7 bag - Follow Up Plan Condition: STABLE Disposition: Trans to Other Acute Care Hosp Instructions: Urinary Tract Infection, Adult (DC) Referrals: Kole Sharp MD [Staff Provider] -
[2018-02-05 15:37] VITALS: BP 106/69; PULSE 98; RESP 20; TEMP 99.1; O2SAT 97
== END 2018-02-05 18:12 | DRG 872 ==
LOC: H.ER 11:45 → H.ERHOLD 14:43 → H.TEL 17:48
PROVIDERS: ADMIT Internal Medicine; ATTEND Internal Medicine
PROC: 02HV33Z Insertion of Infusion Device into Superior Vena Cava, Percutaneous Approach (ICD-10-PCS; principal; 2018-02-05)
PROC: B548ZZA Ultrasonography of Superior Vena Cava, Guidance (ICD-10-PCS; 2018-02-05)
PROC: 3E04329 Introduction of Other Anti-infective into Central Vein, Percutaneous Approach (ICD-10-PCS; 2018-02-05)
DX: A41.51 Sepsis due to Escherichia coli [E. coli] (principal); N39.0 Urinary tract infection, site not specified; B96.20 Unspecified Escherichia coli [E. coli] as the cause of diseases classified elsewhere; E87.6 Hypokalemia; K52.9 Noninfective gastroenteritis and colitis, unspecified; I10 Essential (primary) hypertension; M06.9 Rheumatoid arthritis, unspecified; M32.9 Systemic lupus erythematosus, unspecified; M19.90 Unspecified osteoarthritis, unspecified site

== ENCOUNTER 2018-02-05 17:19 | Inpatient (IN) | payer MEDICARE ==
[2018-02-05 18:10] VITALS: BMI 31.2
--- NOTE | 2018-02-05 18:55 | CP.PCM.HP ---
History of Present Illness - History of Present Illness History of Present Illness: Cc: Bacteremia A 47 year old female with a pmhx hx Rheumatoid Arthritis, Systemic Lupus Erythematosus and Hypertension who initially presented to the ED with GI sumptoms including diarrhea. The patient was found to have enterocolitis, and Ecoli urinary tract infection and bacteremia. The patient was treated on the telemetry unit with IV antibiotics and responded well. The patient now denies any diarrhea, nausea, vomiting, fever, chills, chest pain or shortness of breath. The patient was transferred to TCU for completion of IV antibiotics for the bacteremia. Present on Admission - Present on Admission Any Indicators Present on Admission: No Review of Systems - Review of Systems All systems: reviewed and no additional remarkable complaints except (as stated) - Constitutional Constitutional: As Per HPI - Cardiovascular Cardiovascular: As Per HPI - Respiratory Respiratory: As Per HPI - Gastrointestinal Gastrointestinal: As Per HPI. absent: Abdominal Pain, Diarrhea, Nausea, Vomiting Past Patient History - Infectious Disease Hx of Infectious Diseases: None - Past Medical History & Family History Past Medical History?: Yes Pertinent Family History: States: Unknown - Past Social History Smoking Status: Never Smoked - CARDIAC Hx Cardiac Disorders: No Hx Angina: No Hx Atrial Fibrillation: No Hx Cardia Arrhythmia: No Hx Circulatory Problems: No Hx Congestive Heart Failure: No Hx Heart Attack: No Hx Heart Murmur: No Hx Heart Transplant: No Hx Hypercholesterolemia: No Hx Hypertension: Yes Hx Hypotension: No Hx Internal Defibrillator: No Hx Mitral Valve Prolapse: No Hx Pacemaker: No Hx Peripheral Edema: No Hx Peripheral Vascular Disease: No - PULMONARY Hx Respiratory Disorders: No Hx Asthma: No Hx Bronchitis: No Hx Chronic Obstructive Pulmonary Disease (COPD): No Hx Emphysema: No Hx Lung Cancer: No Hx Pneumonia: No Hx Pulmonary Edema: No Hx Pulmonary Embolism: No Hx Respiratory Aspiration: No Hx Respiratory Tract Infection: No Hx Sleep Apnea: No Hx Tuberculosis: No - NEUROLOGICAL Hx Neurological Disorder: No Hx Alzheimer's Disease: No HX Cerebrovascular Accident: No Hx Dementia: No Hx Dizziness: No Hx Meningitis: No Hx Migraine: No Hx Multiple Sclerosis: No Hx Paralysis: No Hx Parkinson's Disease: No Hx Seizures: No Hx Syncope: No Hx Transient Ischemic Attacks (TIA): No Hx Vertigo: No Other/Comment: occasional headache - HEENT Hx HEENT Problems: No Hx Blind: No Hx Cataracts: No Hx Deafness: No Hx Difficulty Chewing: No Hx Epistaxis: No Hx Glaucoma: No Hx Macular Degeneration: No - RENAL Hx Chronic Kidney Disease: No Hx Dialysis: No Hx Kidney Stones: No Hx Neurogenic Bladder: No Hx Pyelonephritis: No Hx Renal (Kidney) Cancer: No Hx Renal Failure: No - ENDOCRINE/METABOLIC Hx Endocrine Disorders: Yes Hx Adrenal Cancer: No Hx Diabetes Insipidus: No Hx Diabetes Mellitus Type 1: No Hx Diabetes Mellitus Type 2: No Hx Hyperthyroidism: No Hx Hypothyroidism: No Hx Systemic Lupus Erythematosus: Yes - HEMATOLOGICAL/ONCOLOGICAL Hx Blood Disorders: No Hx AIDS: No Hx Anemia: No Hx Blood Transfusions: No Hx Blood Transfusion Reaction: No Hx Bruising: No Hx Cancer: No Hx Chemotherapy: No Hx Cirrhosis: No Hx Gum Bleeding: No Hx Hemophilia: No Hx Hepatitis A: No Hx Hepatitis B: No Hx Hepatitis C: No Hx Human Immunodeficiency Virus (HIV): No Hx Leukemia: No Hx Metastesis: No Hx Shingles: No Hx Sickle Cell Disease: No Hx Unexplained Bleeding: No Hx von Willebrand's Disease: No - INTEGUMENTARY Hx Dermatological Problems: No Hx Basil Cell: No Hx Rodriguez: No Hx Cellulitis: No Hx Eczema: No Hx Melanoma: No Hx Psoriasis: No Hx Squamous Cell: No - MUSCULOSKELETAL/RHEUMATOLOGICAL Hx Musculoskeletal Disorders: No Hx Arthritis: Yes Hx Back Pain: Yes Hx Degenerative Joint Disease: No Hx Falls: No Hx Fractures: No Hx Gout: No Hx Herniated Disk: No Hx Myasthenia Gravis: No Hx Osteoarthritis: No Hx Osteomyelitis: No Hx Osteoporosis: No Hx Rhabdomyolysis: No Hx Rheumatoid Arthritis: Yes Hx Spinal Stenosis: No Hx Unsteady Gait: No - GASTROINTESTINAL Hx Gastrointestinal Disorders: No Hx Bowel Surgery: No Hx Clostridium Difficile: No Hx Colitis: No Hx Colostomy: No Hx Constipation: No Hx Crohn's Disease: No Hx Diarrhea: No Hx Diverticulitis: No Hx Esophageal Varices: No Hx Fatty Liver Disease: No Hx Gall Bladder Disease: No Hx Gastritis: No Hx Gastroesophageal Reflux: No Hx Hemorrhoids: No Hx Ileostomy: No Hx Irritable Bowel: No Hx Liver Failure: No Hx Nausea: Yes Hx Pancreatitis: No HX Swallowing Problems: No Hx Ulcer: No Hx Vomiting: Yes - GENITOURINARY/GYNECOLOGICAL Hx Genitourinary Disorders: No Hx Bladder Cancer: No Hx Bladder Stone: No Hx Cervical Cancer: No Hx Hematuria: No Hx Incontinence: No Hx Ovarian Cancer: No Hx Postmenopausal Bleeding: No Hx Reproductive Disorders: No Hx Sexually Transmitted Disorders: No Hx Uterine Cancer: No Hx Urinary Tract Infection: No - PSYCHIATRIC Hx Psychophysiologic Disorder: No Hx Anxiety: No Hx Bipolar Disorder: No Hx Depression: No Hx Emotional Abuse: No Hx Hallucinations: No Hx Panic Symptoms: No Hx Paranoia: No Hx Post Traumatic Stress Disorder: No Hx Psychosis: No Hx Physical Abuse: No Hx Schizophrenia: No Hx Sexual Abuse: No Hx Substance Use: No - SURGICAL HISTORY Hx Surgeries: No Hx Abdominal Aortic Aneurysm Repair: No Hx Amputation: No Hx Angiogram: No Hx Angioplasty: No Hx Appendectomy: No Hx Arteriovenous Shunt: No Hx Arthroscopy: No Hx Bile Duct Stent: No Hx Breast Biopsy: No Hx Cataract Extraction: No Hx Cardiac Catheterization: No Hx Carotid Endarterectomy: No Hx Section: No (unknown by , only with her 4 years) Hx Cholecystectomy: No Hx Coronary Artery Bypass Graft: No Hx Coronary Stent: No Hx Dilation and Curettage: No Hx Eye Surgery: No Hx Femoral-Popliteal Bypass Graft: No Hx Gastric Bypass Surgery: No Hx Herniorrhaphy: No Hx Hysterectomy: No Hx Joint Replacement: No Hx Kidney Transplant: No Hx Liver Transplant: No Hx Mastectomy: No Hx Musculoskeletal Surgery: No Hx Open Heart Surgery: No Hx Open Reduction Internal Fixation: No Hx Orthopedic Surgery: No Hx Parathyroidectomy: No Hx Penile Implant: No Hx Pulmonary Surgery: No Hx Splenectomy: No Hx Thyroidectomy: No Hx Tonsillectomy: No Hx Tubal Ligation: No Hx Valve Replacement: No Hx Vascular Surgery: No Hx Vascular Access Device: No - ANESTHESIA Hx Anesthesia: No Hx Anesthesia Reactions: No Hx Malignant Hyperthermia: No Meds Allergies/Adverse Reactions: Allergies Allergy/AdvReac Type Severity Reaction Status Date / Time No Known Allergies Allergy Verified 02/05/18 18:09 Physical Exam - Constitutional Appears: Well, No Acute Distress - Head Exam Head Exam: ATRAUMATIC, NORMOCEPHALIC - Eye Exam Eye Exam: EOMI, Normal appearance, PERRL Pupil Exam: NORMAL ACCOMODATION - ENT Exam ENT Exam: Mucous Membranes Moist, Normal Exam - Neck Exam Neck exam: Positive for: Full Rom, Normal Inspection - Respiratory Exam Respiratory Exam: Clear to Auscultation Bilateral, NORMAL BREATHING PATTERN - Cardiovascular Exam Cardiovascular Exam: REGULAR RHYTHM, +S1, +S2 - GI/Abdominal Exam GI & Abdominal Exam: Normal Bowel Sounds, Soft - Rectal Exam Rectal Exam: Deferred - Extremities Exam Extremities exam: Positive for: full ROM, normal inspection, pedal pulses present - Back Exam Back exam: NORMAL INSPECTION - Neurological Exam Neurological exam: Alert, Normal Gait, Oriented x3 - Psychiatric Exam Psychiatric exam: Normal Affect, Normal Mood - Skin Skin Exam: Normal Color, Warm Assessment & Plan (1) Bacteremia Status: Acute (2) UTI (lower urinary tract infection) Status: Acute (3) Rheumatoid arthritis Status: Chronic (4) SLE (systemic lupus erythematosus) Status: Chronic - Assessment and Plan (Free Text) Assessment: IV antibiotics On Flagyl and Merrem On medications for SLE and RA GI/DVT prophylaxis
[2018-02-05] MEDS ORDERED: DIFLUNISAL 500 MG PO SCH (21:00)
[2018-02-06] MEDS: metroNIDAZOLE 500mg/100ml NS 100 ML IVPB SCH ×3 (00:44→16:26)
[2018-02-06] MEDS: Meropenem 1 GM in Sodium Chloride 0.9% 100 ML IVPB SCH ×3 (01:49→16:38)
[2018-02-06] MEDS: Benzocaine/Menthol (Cepacol) Lozenge PO PRN (08:51)
[2018-02-06] MEDS: DIFLUNISAL 500 MG PO SCH ×2 (08:51→20:48)
[2018-02-06] MEDS: Potassium Chloride 20 mEq ER Tab PO SCH ×2 (08:54→16:34)
[2018-02-06] MEDS: Enoxaparin 40 mg Syringe SC SCH (08:54)
[2018-02-06] MEDS: Pantoprazole 40 mg EC Tab PO SCH (08:55)
[2018-02-06] MEDS ORDERED: Patient's Own Med (Cholecalciferol (Vitamin D3) [Vitamin D3] 5,000 unit) PO SCH (09:00)
--- NOTE | 2018-02-06 12:19 | CP.PCM.PN ---
Subjective - Date & Time of Evaluation Date of Evaluation: 02/06/18 Time of Evaluation: 12:19 - Subjective Subjective: Doing well. Denies f/c/n/v or diarrhea Objective - Vital Signs/Intake and Output Vital Signs (last 24 hours): Temp Pulse Resp BP Pulse Ox 98.2 F 84 20 146/99 H 94 L 02/06/18 08:16 02/06/18 08:16 02/06/18 08:16 02/06/18 08:16 02/06/18 08:16 - Medications Medications: Current Medications Acetaminophen (Tylenol 325mg Tab) 650 mg PO Q4 PRN PRN Reason: Fever >100.4 F Baclofen (Lioresal) 10 mg PO Q12 PRN PRN Reason: Muscle spasm Benzocaine/Menthol (Cepacol Sore Throat) 1 martin PO Q2 PRN PRN Reason: Sore Throat Last Admin: 02/06/18 08:51 Dose: 1 martin Enalapril Maleate (Vasotec) 10 mg PO DAILY [facility] Last Admin: 02/06/18 08:55 Dose: 10 mg Enoxaparin Sodium (Lovenox) 40 mg SC DAILY [facility] PRN Reason: Protocol Last Admin: 02/06/18 08:54 Dose: 40 mg Folic Acid (Folic Acid) 1 mg PO DAILY [facility] Last Admin: 02/06/18 08:54 Dose: 1 mg Home Med (Cholecalciferol (Vitamin D3) [Vitamin D3]) 5,000 unit PO DAILY [facility] Home Med (Diflunisal) 500 mg PO Q12H [facility] Last Admin: 02/06/18 08:51 Dose: 500 mg Metronidazole (Flagyl 500mg/100ml Ns) 100 mls @ 100 mls/hr IVPB Q8 [facility] PRN Reason: Protocol Last Admin: 02/06/18 10:07 Dose: 100 mls/hr Meropenem 1 gm/ Sodium (Chloride) 100 mls @ 100 mls/hr IVPB Q8 [facility] PRN Reason: Protocol Last Admin: 02/06/18 10:12 Dose: 100 mls/hr Methotrexate (Methotrexate) 12.5 mg PO QWK [facility] PRN Reason: Protocol Pantoprazole Sodium (Protonix Ec Tab) 40 mg PO DAILY [facility] Last Admin: 02/06/18 08:55 Dose: 40 mg Potassium Chloride (K-Dur 20 Meq Er Tab) 20 meq PO BID [facility] Last Admin: 02/06/18 08:54 Dose: 20 meq Prednisone (Prednisone Tab) 5 mg PO DAILY [facility] Last Admin: 02/06/18 09:02 Dose: 5 mg - Constitutional Appears: Well, No Acute Distress - Head Exam Head Exam: ATRAUMATIC, NORMOCEPHALIC - Respiratory Exam Respiratory Exam: Clear to Ausculation Bilateral, NORMAL BREATHING PATTERN - Cardiovascular Exam Cardiovascular Exam: REGULAR RHYTHM, +S1, +S2 - GI/Abdominal Exam GI & Abdominal Exam: Soft, Normal Bowel Sounds - Neurological Exam Neurological Exam: Alert, Normal Gait - Psychiatric Exam Psychiatric exam: Normal Affect, Normal Mood - Skin Skin Exam: Normal Color, Warm Assessment and Plan (1) Bacteremia Status: Acute (2) UTI (lower urinary tract infection) Status: Acute (3) Rheumatoid arthritis Status: Chronic (4) SLE (systemic lupus erythematosus) Status: Chronic - Assessment and Plan (Free Text) Plan: On IV antibiotics continue rest of medications GI/DVT prophylaxis monitor
[2018-02-06] MEDS: Cholecalciferol 1,000 INTLU TAB PO SCH (16:35)
[2018-02-07] MEDS: Meropenem 1 GM in Sodium Chloride 0.9% 100 ML IVPB SCH ×3 (00:11→17:23)
[2018-02-07] MEDS: metroNIDAZOLE 500mg/100ml NS 100 ML IVPB SCH ×3 (00:12→16:13)
[2018-02-07] MEDS: Pantoprazole 40 mg EC Tab PO SCH (08:36)
[2018-02-07] MEDS: Potassium Chloride 20 mEq ER Tab PO SCH ×2 (08:36→16:28)
[2018-02-07] MEDS: DIFLUNISAL 500 MG PO SCH ×2 (08:38→21:57)
[2018-02-07] MEDS: Cholecalciferol 1,000 INTLU TAB PO SCH (08:39)
[2018-02-07] MEDS: Enoxaparin 40 mg Syringe SC SCH (08:44)
--- NOTE | 2018-02-07 22:12 | CP.PCM.PN ---
Subjective - Date & Time of Evaluation Date of Evaluation: 02/07/18 Time of Evaluation: 14:15 - Subjective Subjective: Feels okay, no new complains. Ambulating on unit Objective - Vital Signs/Intake and Output Vital Signs (last 24 hours): Temp Pulse Resp BP Pulse Ox 98.8 F 88 20 146/98 H 97 02/07/18 20:10 02/07/18 20:10 02/07/18 20:10 02/07/18 20:10 02/07/18 20:10 - Medications Medications: Current Medications Acetaminophen (Tylenol 325mg Tab) 650 mg PO Q4 PRN PRN Reason: Fever >100.4 F Baclofen (Lioresal) 10 mg PO Q12 PRN PRN Reason: Muscle spasm Benzocaine/Menthol (Cepacol Sore Throat) 1 martin PO Q2 PRN PRN Reason: Sore Throat Last Admin: 02/06/18 08:51 Dose: 1 martin Cholecalciferol (Vitamin D) 5,000 intlu PO DAILY [facility] Last Admin: 02/07/18 08:39 Dose: 5,000 intlu Enalapril Maleate (Vasotec) 10 mg PO DAILY [facility] Last Admin: 02/07/18 08:44 Dose: 10 mg Enoxaparin Sodium (Lovenox) 40 mg SC DAILY [facility] PRN Reason: Protocol Last Admin: 02/07/18 08:44 Dose: Not Given Folic Acid (Folic Acid) 1 mg PO DAILY [facility] Last Admin: 02/07/18 08:37 Dose: 1 mg Home Med (Diflunisal) 500 mg PO Q12H [facility] Last Admin: 02/07/18 21:57 Dose: 500 mg Metronidazole (Flagyl 500mg/100ml Ns) 100 mls @ 100 mls/hr IVPB Q8 [facility] PRN Reason: Protocol Last Admin: 02/07/18 16:13 Dose: 100 mls/hr Meropenem 1 gm/ Sodium (Chloride) 100 mls @ 100 mls/hr IVPB Q8 [facility] PRN Reason: Protocol Last Admin: 02/07/18 17:23 Dose: 100 mls/hr Methotrexate (Methotrexate) 12.5 mg PO QWK [facility] PRN Reason: Protocol Pantoprazole Sodium (Protonix Ec Tab) 40 mg PO DAILY@0630 [facility] Potassium Chloride (K-Dur 20 Meq Er Tab) 20 meq PO BID [facility] Last Admin: 02/07/18 16:28 Dose: 20 meq Prednisone (Prednisone Tab) 5 mg PO DAILY [facility] Last Admin: 02/07/18 08:37 Dose: 5 mg - Constitutional Appears: Well, No Acute Distress - Head Exam Head Exam: ATRAUMATIC, NORMOCEPHALIC - Respiratory Exam Respiratory Exam: Clear to Ausculation Bilateral, NORMAL BREATHING PATTERN - Cardiovascular Exam Cardiovascular Exam: REGULAR RHYTHM, +S1, +S2 - GI/Abdominal Exam GI & Abdominal Exam: Soft, Normal Bowel Sounds - Neurological Exam Neurological Exam: Alert, Normal Gait, Oriented x3 - Psychiatric Exam Psychiatric exam: Normal Affect, Normal Mood - Skin Skin Exam: Normal Color, Warm Assessment and Plan (1) Bacteremia Status: Acute (2) UTI (lower urinary tract infection) Status: Acute (3) Rheumatoid arthritis Status: Chronic (4) SLE (systemic lupus erythematosus) Status: Chronic - Assessment and Plan (Free Text) Plan: Continue IV antibiotics continue rest of medications GI/DVT prophylaxis monitor
[2018-02-08] MEDS: Meropenem 1 GM in Sodium Chloride 0.9% 100 ML IVPB SCH ×3 (01:12→18:20)
[2018-02-08] MEDS: metroNIDAZOLE 500mg/100ml NS 100 ML IVPB SCH ×3 (02:17→16:11)
[2018-02-08] MEDS: Pantoprazole 40 mg EC Tab PO SCH (06:10)
[2018-02-08] MEDS: Potassium Chloride 20 mEq ER Tab PO SCH ×2 (08:03→16:12)
[2018-02-08] MEDS: DIFLUNISAL 500 MG PO SCH ×2 (08:03→22:00)
[2018-02-08] MEDS: Cholecalciferol 1,000 INTLU TAB PO SCH (08:04)
[2018-02-08] MEDS: Enoxaparin 40 mg Syringe SC SCH (08:05)
--- NOTE | 2018-02-08 18:52 | CP.PCM.PN ---
Subjective - Date & Time of Evaluation Date of Evaluation: 02/08/18 Time of Evaluation: 18:20 - Subjective Subjective: Doing well. No new complains. No events overnight No n/v/d fever or chills Objective - Vital Signs/Intake and Output Vital Signs (last 24 hours): Temp Pulse Resp BP Pulse Ox 98.1 F 88 16 128/93 H 98 02/08/18 18:35 02/08/18 18:35 02/08/18 18:35 02/08/18 18:35 02/08/18 18:35 - Medications Medications: Current Medications Acetaminophen (Tylenol 325mg Tab) 650 mg PO Q4 PRN PRN Reason: Fever >100.4 F Baclofen (Lioresal) 10 mg PO Q12 PRN PRN Reason: Muscle spasm Benzocaine/Menthol (Cepacol Sore Throat) 1 martin PO Q2 PRN PRN Reason: Sore Throat Last Admin: 02/06/18 08:51 Dose: 1 martin Cholecalciferol (Vitamin D) 5,000 intlu PO DAILY [facility] Last Admin: 02/08/18 08:04 Dose: 5,000 intlu Enalapril Maleate (Vasotec) 10 mg PO BID [facility] Last Admin: 02/08/18 16:18 Dose: 10 mg Enoxaparin Sodium (Lovenox) 40 mg SC DAILY [facility] PRN Reason: Protocol Last Admin: 02/08/18 08:05 Dose: Not Given Folic Acid (Folic Acid) 1 mg PO DAILY [facility] Last Admin: 02/08/18 08:03 Dose: 1 mg Home Med (Diflunisal) 500 mg PO Q12H [facility] Last Admin: 02/08/18 08:03 Dose: 500 mg Metronidazole (Flagyl 500mg/100ml Ns) 100 mls @ 100 mls/hr IVPB Q8 [facility] PRN Reason: Protocol Last Admin: 02/08/18 16:11 Dose: 100 mls/hr Meropenem 1 gm/ Sodium (Chloride) 100 mls @ 100 mls/hr IVPB Q8 [facility] PRN Reason: Protocol Last Admin: 02/08/18 18:20 Dose: 100 mls/hr Methotrexate (Methotrexate) 12.5 mg PO QWK [facility] PRN Reason: Protocol Pantoprazole Sodium (Protonix Ec Tab) 40 mg PO DAILY@0630 [facility] Last Admin: 02/08/18 06:10 Dose: 40 mg Potassium Chloride (K-Dur 20 Meq Er Tab) 20 meq PO BID [facility] Last Admin: 02/08/18 16:12 Dose: 20 meq Prednisone (Prednisone Tab) 5 mg PO DAILY [facility] Last Admin: 02/08/18 08:03 Dose: 5 mg - Constitutional Appears: Well, No Acute Distress - Head Exam Head Exam: ATRAUMATIC, NORMOCEPHALIC - Respiratory Exam Respiratory Exam: Clear to Ausculation Bilateral, NORMAL BREATHING PATTERN - Cardiovascular Exam Cardiovascular Exam: REGULAR RHYTHM, +S1, +S2 - GI/Abdominal Exam GI & Abdominal Exam: Soft, Normal Bowel Sounds - Neurological Exam Neurological Exam: Alert, Normal Gait, Oriented x3 - Psychiatric Exam Psychiatric exam: Normal Affect, Normal Mood - Skin Skin Exam: Normal Color, Warm Assessment and Plan (1) Bacteremia Status: Acute (2) UTI (lower urinary tract infection) Status: Acute (3) Rheumatoid arthritis Status: Chronic (4) SLE (systemic lupus erythematosus) Status: Chronic - Assessment and Plan (Free Text) Plan: Continue IV antibiotics continue rest of treatment GI/DVT prophylaxis monitor
[2018-02-08 20:09] VITALS: RESP 20
[2018-02-09] MEDS: Meropenem 1 GM in Sodium Chloride 0.9% 100 ML IVPB SCH ×3 (01:23→16:56)
[2018-02-09] MEDS: metroNIDAZOLE 500mg/100ml NS 100 ML IVPB SCH ×3 (02:39→16:01)
[2018-02-09] MEDS: Pantoprazole 40 mg EC Tab PO SCH (06:31)
[2018-02-09] MEDS: DIFLUNISAL 500 MG PO SCH ×2 (08:48→21:57)
[2018-02-09] MEDS: Potassium Chloride 20 mEq ER Tab PO SCH (08:48)
[2018-02-09] MEDS: Enoxaparin 40 mg Syringe SC SCH (08:49)
[2018-02-09] MEDS: Cholecalciferol 1,000 INTLU TAB PO SCH (08:53)
[2018-02-09 19:38] LABS: BLOOD UREA NITROGEN 10 mg/dl (7-17); CALCIUM 9.1 mg/dL (8.4-10.2); GFR AFRICAN-AMERICAN > 60; GFR NON-AFRICAN AMERICAN > 60
--- NOTE | 2018-02-09 21:58 | CP.PCM.PN ---
Subjective - Date & Time of Evaluation Date of Evaluation: 02/09/18 Time of Evaluation: 18:00 - Subjective Subjective: Feels well, no new complains Denies fever or chills Objective - Vital Signs/Intake and Output Vital Signs (last 24 hours): Temp Pulse Resp BP Pulse Ox 98.8 F 86 20 140/95 H 98 02/09/18 19:48 02/09/18 19:48 02/09/18 19:48 02/09/18 19:48 02/09/18 19:48 - Medications Medications: Current Medications Acetaminophen (Tylenol 325mg Tab) 650 mg PO Q4 PRN PRN Reason: Fever >100.4 F Baclofen (Lioresal) 10 mg PO Q12 PRN PRN Reason: Muscle spasm Benzocaine/Menthol (Cepacol Sore Throat) 1 martin PO Q2 PRN PRN Reason: Sore Throat Last Admin: 02/06/18 08:51 Dose: 1 martin Cholecalciferol (Vitamin D) 5,000 intlu PO DAILY [facility] [place] Last Admin: 02/09/18 08:53 Dose: 5,000 intlu Enalapril Maleate (Vasotec) 10 mg PO BID [facility] [place] Last Admin: 02/09/18 16:01 Dose: 10 mg Folic Acid (Folic Acid) 1 mg PO DAILY [facility] [place] Last Admin: 02/09/18 08:48 Dose: 1 mg Home Med (Diflunisal) 500 mg PO Q12H [facility] [place] Last Admin: 02/09/18 08:48 Dose: 500 mg Metronidazole (Flagyl 500mg/100ml Ns) 100 mls @ 100 mls/hr IVPB Q8 [facility] PRN Reason: Protocol Last Admin: 02/09/18 16:01 Dose: 100 mls/hr Meropenem 1 gm/ Sodium (Chloride) 100 mls @ 100 mls/hr IVPB Q8 [facility] PRN Reason: Protocol Last Admin: 02/09/18 16:56 Dose: 100 mls/hr Methotrexate (Methotrexate) 12.5 mg PO QWK [facility] [place] PRN Reason: Protocol Pantoprazole Sodium (Protonix Ec Tab) 40 mg PO DAILY@0630 [facility] [place] Last Admin: 02/09/18 06:31 Dose: 40 mg Prednisone (Prednisone Tab) 5 mg PO DAILY [facility] [place] Last Admin: 02/09/18 08:51 Dose: 5 mg - Labs Labs: 02/09/18 18:30 - Constitutional Appears: Well, No Acute Distress - Head Exam Head Exam: ATRAUMATIC - Respiratory Exam Respiratory Exam: Clear to Ausculation Bilateral, NORMAL BREATHING PATTERN - Cardiovascular Exam Cardiovascular Exam: REGULAR RHYTHM, +S1, +S2 - GI/Abdominal Exam GI & Abdominal Exam: Soft, Normal Bowel Sounds - Neurological Exam Neurological Exam: Alert, Normal Gait - Psychiatric Exam Psychiatric exam: Normal Affect, Normal Mood - Skin Skin Exam: Normal Color, Warm Assessment and Plan (1) Bacteremia Status: Acute (2) UTI (lower urinary tract infection) Status: Acute (3) Rheumatoid arthritis Status: Chronic (4) SLE (systemic lupus erythematosus) Status: Chronic - Assessment and Plan (Free Text) Plan: Continue IV antibiotics continue rest of treatment GI/DVT prophylaxis monitor
[2018-02-10] MEDS: Meropenem 1 GM in Sodium Chloride 0.9% 100 ML IVPB SCH ×3 (01:04→16:23)
[2018-02-10] MEDS: metroNIDAZOLE 500mg/100ml NS 100 ML IVPB SCH ×3 (01:05→16:23)
[2018-02-10] MEDS: Pantoprazole 40 mg EC Tab PO SCH (05:41)
[2018-02-10] MEDS: DIFLUNISAL 500 MG PO SCH ×2 (09:14→21:07)
[2018-02-10] MEDS: Benzocaine/Menthol (Cepacol) Lozenge PO PRN (09:16)
[2018-02-10] MEDS: Cholecalciferol 1,000 INTLU TAB PO SCH (13:15)
[2018-02-11] MEDS: metroNIDAZOLE 500mg/100ml NS 100 ML IVPB SCH ×3 (01:30→16:30)
[2018-02-11] MEDS: Meropenem 1 GM in Sodium Chloride 0.9% 100 ML IVPB SCH ×3 (01:31→16:34)
[2018-02-11] MEDS: Pantoprazole 40 mg EC Tab PO SCH (06:14)
[2018-02-11] MEDS: DIFLUNISAL 500 MG PO SCH ×2 (08:45→20:38)
[2018-02-11] MEDS: Cholecalciferol 1,000 INTLU TAB PO SCH (08:46)
--- NOTE | 2018-02-11 23:23 | CP.PCM.PN ---
Subjective - Date & Time of Evaluation Date of Evaluation: 02/11/18 Time of Evaluation: 19:00 - Subjective Subjective: Feels well. Ambulating on unit No urinary symptoms. Denies fever or chills Objective - Vital Signs/Intake and Output Vital Signs (last 24 hours): Temp Pulse Resp BP Pulse Ox 98.2 F 87 20 155/80 H 94 L 02/11/18 21:50 02/11/18 21:50 02/11/18 21:50 02/11/18 21:50 02/11/18 21:50 - Medications Medications: Current Medications Acetaminophen (Tylenol 325mg Tab) 650 mg PO Q4 PRN PRN Reason: Fever >100.4 F Baclofen (Lioresal) 10 mg PO Q12 PRN PRN Reason: Muscle spasm Benzocaine/Menthol (Cepacol Sore Throat) 1 martin PO Q2 PRN PRN Reason: Sore Throat Last Admin: 02/10/18 09:16 Dose: 1 martin Cholecalciferol (Vitamin D) 5,000 intlu PO DAILY [facility] Last Admin: 02/11/18 08:46 Dose: 5,000 intlu Enalapril Maleate (Vasotec) 10 mg PO BID [facility] Last Admin: 02/11/18 16:33 Dose: 10 mg Folic Acid (Folic Acid) 1 mg PO DAILY [facility] Last Admin: 02/11/18 08:46 Dose: 1 mg Home Med (Diflunisal) 500 mg PO Q12H [facility] Last Admin: 02/11/18 20:38 Dose: 500 mg Meropenem 1 gm/ Sodium (Chloride) 100 mls @ 100 mls/hr IVPB Q8 [facility] PRN Reason: Protocol Last Admin: 02/11/18 16:34 Dose: 100 mls/hr Metronidazole (Flagyl 500mg/100ml Ns) 100 mls @ 100 mls/hr IVPB Q8 [facility] PRN Reason: Protocol Last Admin: 02/11/18 16:30 Dose: 100 mls/hr Methotrexate (Methotrexate) 12.5 mg PO QWK [facility] PRN Reason: Protocol Last Admin: 02/10/18 13:16 Dose: 12.5 mg Pantoprazole Sodium (Protonix Ec Tab) 40 mg PO DAILY@0630 [facility] Last Admin: 02/11/18 06:14 Dose: 40 mg Prednisone (Prednisone Tab) 5 mg PO DAILY [facility] Last Admin: 02/11/18 08:46 Dose: 5 mg - Labs Labs: 02/09/18 18:30 - Constitutional Appears: Well, No Acute Distress - Head Exam Head Exam: ATRAUMATIC - Respiratory Exam Respiratory Exam: Clear to Ausculation Bilateral, NORMAL BREATHING PATTERN - Cardiovascular Exam Cardiovascular Exam: REGULAR RHYTHM, +S1, +S2 - GI/Abdominal Exam GI & Abdominal Exam: Soft, Normal Bowel Sounds - Neurological Exam Neurological Exam: Alert, Normal Gait, Oriented x3 - Psychiatric Exam Psychiatric exam: Normal Affect - Skin Skin Exam: Normal Color, Warm Assessment and Plan (1) Bacteremia Status: Acute (2) UTI (lower urinary tract infection) Status: Acute (3) Rheumatoid arthritis Status: Chronic (4) SLE (systemic lupus erythematosus) Status: Chronic - Assessment and Plan (Free Text) Plan: Continue IV antibiotics continue rest of treatment GI/DVT prophylaxis monitor
[2018-02-12] MEDS: Meropenem 1 GM in Sodium Chloride 0.9% 100 ML IVPB SCH ×3 (00:25→17:23)
[2018-02-12] MEDS: metroNIDAZOLE 500mg/100ml NS 100 ML IVPB SCH ×3 (00:36→16:11)
[2018-02-12] MEDS: Pantoprazole 40 mg EC Tab PO SCH (06:19)
[2018-02-12] MEDS: DIFLUNISAL 500 MG PO SCH ×2 (08:38→21:08)
[2018-02-12] MEDS: Cholecalciferol 1,000 INTLU TAB PO SCH (08:38)
[2018-02-12 19:26] VITALS: O2SAT 97
[2018-02-13] MEDS: metroNIDAZOLE 500mg/100ml NS 100 ML IVPB SCH ×2 (01:18→09:14)
[2018-02-13] MEDS: Meropenem 1 GM in Sodium Chloride 0.9% 100 ML IVPB SCH ×2 (02:52→09:14)
[2018-02-13] MEDS: Pantoprazole 40 mg EC Tab PO SCH (06:55)
[2018-02-13 09:04] VITALS: BP 141/96; PULSE 77; TEMP 98.1
[2018-02-13] MEDS: Cholecalciferol 1,000 INTLU TAB PO SCH (09:13)
[2018-02-13] MEDS: DIFLUNISAL 500 MG PO SCH (09:13)
--- NOTE | 2018-02-13 09:36 | CP.PCM.PN ---
Subjective - Date & Time of Evaluation Date of Evaluation: 02/12/18 Time of Evaluation: 15:00 - Subjective Subjective: Feeling better. for D/c In Am Objective - Vital Signs/Intake and Output Vital Signs (last 24 hours): Temp Pulse Resp BP Pulse Ox 98.1 F 77 20 141/96 H 97 02/13/18 09:03 02/13/18 09:03 02/13/18 09:03 02/13/18 09:03 02/13/18 09:03 - Medications Medications: Current Medications Acetaminophen (Tylenol 325mg Tab) 650 mg PO Q4 PRN PRN Reason: Fever >100.4 F Baclofen (Lioresal) 10 mg PO Q12 PRN PRN Reason: Muscle spasm Benzocaine/Menthol (Cepacol Sore Throat) 1 martin PO Q2 PRN PRN Reason: Sore Throat Last Admin: 02/10/18 09:16 Dose: 1 martin Cholecalciferol (Vitamin D) 5,000 intlu PO DAILY [facility] Last Admin: 02/13/18 09:13 Dose: 5,000 intlu Enalapril Maleate (Vasotec) 10 mg PO BID [facility] Last Admin: 02/13/18 09:13 Dose: 10 mg Folic Acid (Folic Acid) 1 mg PO DAILY [facility] Last Admin: 02/13/18 09:14 Dose: 1 mg Home Med (Diflunisal) 500 mg PO Q12H [facility] Last Admin: 02/13/18 09:13 Dose: 500 mg Meropenem 1 gm/ Sodium (Chloride) 100 mls @ 100 mls/hr IVPB Q8 [facility] PRN Reason: Protocol Last Admin: 02/13/18 09:14 Dose: 100 mls/hr Metronidazole (Flagyl 500mg/100ml Ns) 100 mls @ 100 mls/hr IVPB Q8 [facility] PRN Reason: Protocol Last Admin: 02/13/18 09:14 Dose: 100 mls/hr Methotrexate (Methotrexate) 12.5 mg PO QWK [facility] PRN Reason: Protocol Last Admin: 02/10/18 13:16 Dose: 12.5 mg Pantoprazole Sodium (Protonix Ec Tab) 40 mg PO DAILY@0630 [facility] Last Admin: 02/13/18 06:55 Dose: 40 mg Prednisone (Prednisone Tab) 5 mg PO DAILY [facility] Last Admin: 02/13/18 09:14 Dose: 5 mg - Labs Labs: 02/09/18 18:30 Assessment and Plan (1) Bacteremia Status: Acute (2) UTI (lower urinary tract infection) Status: Acute (3) Rheumatoid arthritis Status: Chronic (4) SLE (systemic lupus erythematosus) Status: Chronic - Assessment and Plan (Free Text) Plan: Advanced D/c Planning as she completes IV antibiotics tonight
--- NOTE | 2018-02-13 09:36 | CP.PCM.DIS ---
Provider - Provider Date of Admission: 02/05/18 18:10 Attending physician: Elia Calvin MD Time Spent in preparation of Discharge (in minutes): 25 Diagnosis - Discharge Diagnosis (1) Bacteremia Status: Acute (2) UTI (lower urinary tract infection) Status: Acute (3) Rheumatoid arthritis Status: Chronic (4) SLE (systemic lupus erythematosus) Status: Chronic Hospital Course - Lab Results Lab Results: Most Recent Lab Values Sodium 142 mmol/l (132-148) 02/09/18 18:30 Potassium 4.7 MMOL/L (3.6-5.0) 02/09/18 18:30 Chloride 105 mmol/L (98-107) 02/09/18 18:30 Carbon Dioxide 24 mmol/L (22-30) 02/09/18 18:30 Anion Gap 18 (10-20) 02/09/18 18:30 BUN 10 mg/dl (7-17) 02/09/18 18:30 Creatinine 0.6 mg/dl (0.7-1.2) L 02/09/18 18:30 Est GFR ( Amer) > 60 02/09/18 18:30 Est GFR (Non-Af Amer) > 60 02/09/18 18:30 Random Glucose 109 mg/dL (65-105) H 02/09/18 18:30 Calcium 9.1 mg/dL (8.4-10.2) 02/09/18 18:30 Discharge Exam - Head Exam Head Exam: ATRAUMATIC Discharge Plan - Follow Up Plan Condition: GOOD Disposition: HOME/ ROUTINE Instructions: Urinary Tract Infection, Adult (DC), Sepsis, Adult (DC), Sepsis ( DC) Additional Instructions: FOLLOW UP WITH DR. CALVIN IN 2 WEEKS. IF ANY FEVER OR SEVERE PAIN PLEASE GO TO NEAREST EMERGENCY ROOM. Referrals: Manas Garcia MD [Staff Provider] - Elia Calvin MD [Staff Provider] -
== END 2018-02-13 12:37 | disposition home or self-care (01) | DRG 690 ==
LOC: H.TCU 18:10
PROVIDERS: ADMIT Internal Medicine; ATTEND Internal Medicine
DX: N39.0 Urinary tract infection, site not specified (principal); R78.81 Bacteremia; M19.90 Unspecified osteoarthritis, unspecified site; B96.20 Unspecified Escherichia coli [E. coli] as the cause of diseases classified elsewhere; I10 Essential (primary) hypertension; K52.9 Noninfective gastroenteritis and colitis, unspecified; M06.9 Rheumatoid arthritis, unspecified; M32.9 Systemic lupus erythematosus, unspecified